=== PATIENT | male | born 1955 | race Caucasian/White ===

== ENCOUNTER → 2020-06-01 10:41 | Outpatient (BNVA) | payer MEDICARE, MEDICAID, SELFPAY | PROVIDERS: PCP Internal Medicine; Referring Provider Internal Medicine; Visit Provider Internal Medicine Pulmonary Disease | DX: J44.9 Chronic obstructive pulmonary disease, unspecified (principal); R91.8 Other nonspecific abnormal finding of lung field | CPT/HCPCS: 99212 ==

== ENCOUNTER → 2020-06-09 10:25 | Outpatient (BNVA) | payer MEDICARE, MEDICAID, SELFPAY | PROVIDERS: PCP Internal Medicine; Visit Provider Nurse Practitioner Family | DX: I48.0 Paroxysmal atrial fibrillation (principal); I10 Essential (primary) hypertension; G47.33 Obstructive sleep apnea (adult) (pediatric); J44.9 Chronic obstructive pulmonary disease, unspecified | CPT/HCPCS: 93005; 99212 ==

== ENCOUNTER → 2020-07-07 09:02 | Outpatient (REF) | payer MEDICARE, MEDICAID, SELFPAY | LOC: HO.SL 09:02 | PROVIDERS: Visit Provider Internal Medicine Pulmonary Disease | DX: G47.33 Obstructive sleep apnea (adult) (pediatric) (principal) | CPT/HCPCS: 95806 ==

== ENCOUNTER → 2020-07-14 08:07 | Outpatient (REF) | payer MEDICARE, MEDICAID, SELFPAY ==
--- NOTE | 2020-07-14 | NM_ITS ---
Myocardial perfusion study Indication: Paroxysmal atrial fibrillation with medical therapy to evaluate for myocardial ischemia Technique: The patient was brought in for a Lexiscan perfusion study on 07/14/2020. Patient performed low-level exercise and was injected 0.4 mg of Lexiscan intravenously. Within a minute of injection, 30 mCi of sestamibi was given intravenously. Images were obtained using the SPECT gamma camera interlaced with the gating device. Images were obtained in supine position. Resting perfusion study was performed on 07/15/2020. Patient was administered 30 mCi of sestamibi intravenously at rest. Images were then obtained in supine position. Images obtained with and without CT attenuation. Total DLP 67 mGy-cm. Images were processed with the software and compared side to side in short axis, horizontal long axis and vertical long axis views. Findings: The stress perfusion study showed non attenuated images show normal uptake of radiotracer in all segments of LV myocardium. Attenuation corrected images suboptimal due to subdiaphragmatic uptake.. The gated study shows normal LV systolic function with calculated LVEF of 60%. LV cavity is normal in size. The gated study shows normal systolic wall thickening and contraction of segments. Resting study shows non attenuated images show normal uptake of radiotracer in all segments of LV myocardium. Gating at rest reveals normal systolic wall motion with ejection fraction at 57%. The findings are consistent with normal myocardial perfusion. NM/NM bruno perf SPECT rest & str Impression: 1. Myocardial perfusion imaging study shows normal myocardial perfusion 2. Gated LVEF is 60% 3. Transient ischemic dilatation not present EKG is nondiagnostic for ischemia
--- NOTE | 2020-07-14 08:13 | CA_ITS ---
Acquisition Time: 2020-07-14 08:16:20 Total Exercise Time: 00:02:00 Test Indications: Abnormal ECG Medications: ALBUTEROL FLECAINIDE LISINOPRIL METOPROLOL OMEPRAZOLE OXYCODONE ANORRA/ELIPTA CLONAZAPAM Protocol: LEXISCAN Max HR: 121 BPM 77% of Pred: 156 BPM Max BP: 108/068 mmHG Max Work Load: 1.0 METS Pharm stress test using Lexiscan while sitting. Pt toleraed well, denies any anginal sx. EKG with A-fib. at baseline, non-diagnostic for ischemia. Nuclear images to follow. Normotensive response to test. Test reviewed with With Dr. Kay. Referred By: Tamara Rodriguez Overread By: Chris Herrera
--- NOTE | 2020-07-14 08:13 | ECG_ITS ---
Hook-up date: 2020-07-14 09:13:00 Duration: 29:04:00 Test Indications: PAF Medications: 120286 QRS complexes 4 Ventricular ectopics which represent <1 % of total QRS comp. * Supraventricular ectopics which represent % of total QRS comp. * Paced QRS complexs which represent % of total QRS comp. VENTRICULAR ECTOPY 4 Isolated 0 Bigeminal Cycles 0 Couplets 0 Runs 0 Beats in Runs * Beats LONGEST at * BPM at :: -- * Beats FASTEST at * BPM at :: -- SUPRAVENTRICULAR ECTOPY * Isolated * Couplets * Runs * Beats in Runs * Beats LONGEST at * BPM at :: -- * Beats FASTEST at * BPM at :: -- HEART RATES 65 MIN at 11:37:08 2020-07-14 91 AVG 148 MAX at 10:15:37 2020-07-14 LONGEST RR 1.2880 secs at 14:29:04 2020-07-14 S-T LEVELS Channel 1 - 128 mm at 09:13:00 2020-07-14 - 128 mm at 09:13:00 2020-07-14 Channel 2 - 128 mm at 09:13:00 2020-07-14 - 128 mm at 09:13:00 2020-07-14 Channel 3 - 128 mm at 02:83:21 -- - 128 mm at 02:83:21 Underlying rhythm is atrial flutter; Average ventriucular rate 91/min; range 65-148/min; About 18% of the time, ventricular rate >100/min; Patient did not report any symptoms in the diary Referred By: Tamara Rodriguez Overread By: JOSÉ LUIS KAMINSKI
== END ==
LOC: HO.CARD 08:07
PROVIDERS: Visit Provider Nurse Practitioner Family
DX: I48.0 Paroxysmal atrial fibrillation (principal)
CPT/HCPCS: 78452; 93017; 93225; 93226; A9500; J0280; J2785

== ENCOUNTER → 2020-07-28 11:04 | Outpatient (BNVA) | payer MEDICARE, MEDICAID, SELFPAY | PROVIDERS: PCP Internal Medicine; Visit Provider Internal Medicine Pulmonary Disease | DX: J44.9 Chronic obstructive pulmonary disease, unspecified (principal); R91.8 Other nonspecific abnormal finding of lung field | CPT/HCPCS: Q3014 ==

== ENCOUNTER → 2020-08-04 11:42 | Outpatient (BNVA) | payer MEDICARE, MEDICAID, SELFPAY | PROVIDERS: PCP Internal Medicine; Visit Provider Nurse Practitioner Family | DX: I48.0 Paroxysmal atrial fibrillation (principal); I10 Essential (primary) hypertension; J44.9 Chronic obstructive pulmonary disease, unspecified; I48.92 Unspecified atrial flutter | CPT/HCPCS: 99212 ==

== ENCOUNTER → 2020-08-25 10:20 | Outpatient (BNVA) | payer MEDICARE, MEDICAID, SELFPAY | PROVIDERS: PCP Internal Medicine; Visit Provider Internal Medicine Pulmonary Disease | DX: Z13.89 Encounter for screening for other disorder (principal) | CPT/HCPCS: 99212 ==

== ENCOUNTER 2020-08-26 07:07 | Day surgery (SDC) | payer MEDICARE, MEDICAID, SELFPAY ==
[2020-08-24 10:16] LABS: MANUAL DIFF FLAG NO
[2020-08-24 10:45] LABS: Basophils Absolute Auto 0.1 X10*3/uL (0.0-0.2); Basophils Percent Auto 0.6 % (0-2); Eosinophils Absolute Auto 0.1 X10*3/uL (0.0-0.4); Eosinophils Percent Auto 1.3 % (0-4); Hematocrit 43.2 % (42-52); Hemoglobin 14.5 g/dl (14.0-18.0); Imm Gran Abs Auto 0.04 X10*3/uL (0.00-0.03); Imm Gran Pct Auto 0.4 % (0.0-0.4); Lymphocytes Percent Auto 21.1 % (20-40); Mean Corpuscular HGB Conc 33.6 g/dl (31.0-36.0); Mean Corpuscular Hemoglobin 30.8 pg (27.0-33.0); Mean Corpuscular Volume 91.7 fL (80-98); Mean Platelet Volume 12.5 fL (9.4-12.4); Monocytes Absolute Auto 0.6 X10*3/uL (0.1-1.2); Monocytes Percent Auto 6.1 % (2-11); Neutrophils Absolute Auto 6.7 X10*3/uL (2.0-8.3); Neutrophils Percent Auto 70.5 % (45-73); Platelet Count 213 X10*3/uL (160-400); Red Blood Count 4.71 X10*6/uL (4.60-5.80); Red Cell Distribution Width 12.2 % (11.0-16.0); White Blood Count 9.5 X10*3/uL (4.8-10.8)
[2020-08-24 11:09] LABS: Alanine Aminotransferase 22 U/L (0-40); Albumin Level 4.5 g/dL (3.5-5.0); Alkaline Phosphatase 80 U/L (39-117); Anion Gap 13 (12-20); Aspartate Amino Transferase 23 U/L (5-37); Bilirubin Total 0.7 mg/dL (0.0-1.0); Blood Urea Nitrogen 11 mg/dL (9-16); Calcium 9.6 mg/dL (8.4-10.2); Carbon Dioxide 30 mmol/L (22-29); Chloride 100 mmol/L (96-108); Estimated Glomerular Filt Rate > 60; Glucose Random 114 mg/dL (60-115); Potassium 4.5 mmol/L (3.3-5.1); Sodium 138 mmol/L (135-145)
--- NOTE | 2020-08-25 08:23 | P.CONAN_ITS ---
Documented by User: Michelel Rivera 08/25/20 08:28 HPI - Anesthesia Eval Consult details Narrative: 65yo M for Cardioversion PMFSH Active Problems Active Problems: All Active Problems (Updated 08/04/20 @ 12:02 by Tamara Rodriguez NP-C) Atrial flutter (Acute) PAF (paroxysmal atrial fibrillation) (Acute) Hypertension (Acute) Pulmonary nodules (Acute) Severe chronic obstructive pulmonary disease (Acute) Chronic pain disorder (Acute) Past Medical History Medical History (Updated 08/25/20 @ 08:28 by Michelle Rivera) Atrial flutter Cardiomyopathy Chronic pain disorder Hypertension PAF (paroxysmal atrial fibrillation) Severe chronic obstructive pulmonary disease Family History Family History Father Respiratory distress Mother Myocardial infarction CAD (coronary artery disease) Sister Gastric cancer Surgical History Surgical History History of left shoulder replacement Social History Social History Alcohol intake: current Alcohol intake frequency: a few times a week Smoking Status: Current every day smoker Tobacco Type: Cigarette Cigarettes Per Day: 15 Smoked in Last 30 Days: Yes Use of substances other than those prescribed or required for medical reasons: No Advance Directives: No Advance Directives Information Provided: Yes Meds Allergies Allergy/AdvReac Type Severity Reaction Status Date / Time No Known Allergies Allergy Verified 08/25/20 10:21 Exam Exam Date and Time: August 25, 2020822 Pertinent Lab Results Pertinent Lab Results: Laboratory Tests 08/24/20 08/24/20 09:43 09:43 WBC 9.5 RBC 4.71 Hgb 14.5 Hct 43.2 MCV 91.7 MCH 30.8 MCHC 33.6 RDW 12.2 Plt Count 213 MPV 12.5 H Immature Gran % (Auto) 0.4 Neut % (Auto) 70.5 Lymph % (Auto) 21.1 [place] % (Auto) 6.1 Eos % (Auto) 1.3 Baso % (Auto) 0.6 Lymph # (Auto) 2.0 [place] # (Auto) 0.6 Eos # (Auto) 0.1 Baso # (Auto) 0.1 Abs Immat Gran (auto) 0.04 H Absolute Neuts (auto) 6.7 Absolute Nucleated RBC 0.000 Nucleated RBC % (auto) 0.0 Sodium 138 Potassium 4.5 Chloride 100 Carbon Dioxide 30 H Anion Gap 13 BUN 11 Creatinine 1.14 Estim Creat Clear Calc TNP Estimated GFR > 60 Random Glucose 114 Calcium 9.6 Magnesium 2.0 Total Bilirubin 0.7 AST 23 ALT 22 Alkaline Phosphatase 80 Total Protein 7.0 Albumin 4.5 Narrative Narrative: ECHO 05/16/2018 showed EF 60-65%, left atrium moderately dilated, mild MR Holter 07/14/2020 shows atrial flutter with average heart rate 91, heart rate range 65 to 148, 18% of the time heart rate greater than 100. Nuclear stress test 07/14/2020 shows normal myocardial perfusion imaging. Sleep study done on 07/07/2020 shows no obstructive sleep apnea or hypoxia, severe snoring present. Pulmonary function test on 01/29/2020 shows severe obstructive airway disorder, partly reversible with bronchodilator consistent with asthma/COPD. Assessment and Plan Assessment Anesthesia Assessment: Chart Reviewed Documented by User: Brittaney Clemente 08/26/20 08:32 [facility] Past Medical History Medical History (Updated 08/25/20 @ 08:28 by Michelle Rivera) Atrial flutter Cardiomyopathy Chronic pain disorder Hypertension PAF (paroxysmal atrial fibrillation) Severe chronic obstructive pulmonary disease Family History Family History Father Respiratory distress Mother Myocardial infarction CAD (coronary artery disease) Sister Gastric cancer Surgical History Surgical History History of left shoulder replacement Social History Social History Alcohol intake: current Alcohol intake frequency: a few times a week Smoking Status: Current every day smoker Tobacco Type: Cigarette Cigarettes Per Day: 15 Smoked in Last 30 Days: Yes Use of substances other than those prescribed or required for medical reasons: No Advance Directives: No Advance Directives Information Provided: Yes Meds Allergies Allergy/AdvReac Type Severity Reaction Status Date / Time No Known Allergies Allergy Verified 08/25/20 10:21 Exam Airway Mallampati Class: II TM Dist: >3cm Neck ROM: Full Denture: Upper and Lower Heart: RrR Lungs: CTA Bl Assessment and Plan Assessment Anesthesia Assessment: Anesthesia Plan Discussed and Chart Reviewed Final Anesthetic Review NPO: Yes ASA Class: III Final Preanesthetic Review: No Changes in Pt Med Stat and Consent Obtained/Reviewed Patient Risk: Intermediate Procedure Risk: Intermediate Anesthetic Plan Anesthetic Plan: MAC: Disposition: Standard PACU
--- NOTE | 2020-08-25 16:03 | MHC.SHP ---
Pre-Procedural Eval Section A The patient is an INPATIENT: No Changes since office visit: Yes Patient answered all questions; No Cold of Flu in the past 2 weeks, No New Medical Problems and No Changes in Medication The History & Physical has been completed within 30 days and I have reviewed it.: Yes Section B Chief Complaint: A-fib Allergies: Allergies Allergy/AdvReac Type Severity Reaction Status Date / Time No Known Allergies Allergy Verified 08/25/20 10:21 Plan I have reviewed the history and physical and performed a pertinent physical examination on my patient. No changes have occurred unless specified.
[2020-08-26 07:18] VITALS: BMI 27.8
[2020-08-26 07:27] VITALS: BP 113/74; PULSE 106; RESP 16; TEMP 36.7; O2SAT 97
[2020-08-26] MEDS: Lactated Ringers 1,000 ML 100 ML IVCONT (08:02)
--- NOTE | 2020-08-26 08:41 | ECG_ITS ---
Test Reason : S/P CARDIOVERSION Blood Pressure : / mmHG Vent. Rate : 069 BPM Atrial Rate : 069 BPM P-R Int : 206 ms QRS Dur : 104 ms QT Int : 444 ms P-R-T Axes : 085 094 053 degrees QTc Int : 475 ms Normal sinus rhythm Rightward axis Cannot rule out Inferior infarct (cited on or before 22-FEB-2017) Abnormal ECG When compared with ECG of 28-NOV-2018 12:05, Sinus rhythm has replaced Atrial fibrillation Referred By: Charli Perkins Electronically Signed By:JOSÉ LUIS KAMINSKI
[2020-08-26 08:42] VITALS: BP 98/63; PULSE 69; RESP 16; TEMP 36.4; O2SAT 96
--- NOTE | 2020-08-26 08:42 | HO.CARDIVERS ---
Cardioversion Procedure Note Cardioversion Date of Procedure: 08/26/2020 Ordering Provider: Tamara Rodriguez Performing Provider: Myself Indication for Procedure: Persistent atrial fibrillation, symptomatic Pre-Op Diagnosis: Persistent atrial fibrillation Post-Op Diagnosis: Sinus rhythm Performed with Transesophageal Echo: No History: See H&P for details Consent: Verbal and Written consent was obtained from the patient before starting and after confirming use of oral anticoagulation.. The patient was made aware of the risk of the procedure including benefits, 2nd opinion and alternatives. Procedure: After consent obtained, cardioversion pads were attached in AP configuration and the patient was sedated by the anesthesia team. Once adequate sedation achieved, patient was delivered 200 joules of biphasic synchronized energy in anteroposterior configuration. Complications: None Impression: Successful conversion to sinus rhythm. Recommendations: 1. EKG now 2. Continue flecainide for antiarrhythmic therapy along with Toprol 3. Continue Xarelto 4. Follow up in the office in 2-4 weeks after Holter monitor 5. EPS consultation for repeat ablation
[2020-08-26 08:47] VITALS: BP 107/62; PULSE 67; RESP 18; O2SAT 97
[2020-08-26 08:52] VITALS: BP 102/57; PULSE 68; RESP 16; O2SAT 98
[2020-08-26 08:57] VITALS: BP 110/64; PULSE 72; RESP 18; O2SAT 98
[2020-08-26 09:12] VITALS: PULSE 70; RESP 16; O2SAT 97
--- NOTE | 2020-08-26 10:36 | PC.NURSE ---
Patient drove his car here but has family picking him up for discharge. He said he was leaving his car here overnight. I contacted [facility] [facility] and they came to [facility] to speak with patient. Security is now aware that his vehicle may be here overnight.
== END 2020-08-26 10:15 | disposition home or self-care (01) ==
PROVIDERS: Nurse Practitioner Family; PCP Internal Medicine; Visit Provider Internal Medicine Cardiovascular Disease
PROC: 5A2204Z Restoration of Cardiac Rhythm, Single (ICD-10-PCS; principal; 2020-08-26 08:30)
DX: I48.19 Other persistent atrial fibrillation (principal); Z79.01 Long term (current) use of anticoagulants; I10 Essential (primary) hypertension; J44.9 Chronic obstructive pulmonary disease, unspecified; Z79.899 Other long term (current) drug therapy; F17.210 Nicotine dependence, cigarettes, uncomplicated
CPT/HCPCS: 36415; 80053; 83735; 85025; 92960; 93005

== ENCOUNTER → 2020-09-10 10:30 | Outpatient (REF) | payer MEDICARE, MEDICAID, SELFPAY ==
--- NOTE | 2020-09-10 10:34 | CA_ITS ---
Transthoracic Echocardiogram Patient (Last, First, Middle): Odell Singer F Gender: Male Date of : 1955 Age: 65 Procedure Date: 09/10/2020 Procedure Type: Transthoracic Echocardiogram Location: OP Height: 180.34 cm Weight: 87.09 kg BSA: 2.07 m2 Heart Rate: bpm BP: 130 / 75 mmHg General Repairer: MAURICE Referring MD: Tamara REZA Retail Buyer: Charli Perkins MD Symptoms: I48.92 - Unspecified atrial flutter Study Quality: Fair ECG Rhythm: Sinus Conclusions: - 1. Low normal LV systolic function with LVEF of 50-55% 2. Right ventricular appears to be dilated 3. Moderately enlarged left atrium 4. [id number] mitral regurgitation 5. Normal RV systolic pressure 6. No pericardial effusion Findings Left Ventricle Normal left ventricular cavity size. There is normal left ventricular wall thickness. The left ventricular systolic function is low normal. The visually estimated ejection fraction is between 50-55%. Spectral Doppler is indicative of an impaired relaxation filling pattern. Right Ventricle Moderately increased right ventricular cavity size. There is borderline right ventricular systolic function. Atria The left atrium is moderately dilated. There is no evidence of interatrial shunt. The right atrium is mildly dilated. Aortic Valve The aortic valve structure and function is likely normal. There is no aortic valve stenosis. There is no aortic valve regurgitation. Mitral Valve There is mild anterior and posterior mitral leaflet thickening. There is mild to moderate mitral valve regurgitation. There is no mitral valve stenosis. Pulmonic Valve The pulmonic valve was not well visualized. Tricuspid Valve Likely normal tricuspid valve structure and function. There is mild tricuspid valve regurgitation. The right ventricular systolic pressure is normal. The right ventricular systolic pressure is 35 mmHg. Normal right atrial pressure. There is no evidence of pulmonary hypertension. Great Vessels All visible segments of the aorta are normal in size. The pulmonary artery was not well visualized. Venous The inferior vena cava is normal in size and collapses greater than 50% with inspiration. Pericardium/Pleural There is no evidence of pericardial effusion. Prior Study Comparison Changes noted compared to prior study dated: 05/16/2018. LV systolic function appears to be reduced. RV appears to be enlarged Measurements 2D Linear Measurements IVSd: 0.80 0.6-0.9/0.6-1.0 cm LVIDd: 5.23 3.9-5.3/4.2-5.9 cm LVIDd Index: 2.53 2.4-3.2/2.2-3.1 cm/m2 LVIDs: 3.33 2.0-3.6 cm LVPWd: 0.84 0.7-1.1 cm Ao Root: 3.20 2.1-3.5 cm LA Diam: 4.40 2.7-3.8/3.0-4.0 cm LAIDs Index: 2.13 1.5-2.3 cm/m2 LV Mass: 187.99 67-162/88-224 g LV Mass Index: 90.82 43-95/49-115 g/m2 LVOT Diam: 2.10 3.0+(-)1.3 cm 2D Systolic Function EF 4C: 65.70 >55% EF 2C: 35.20 >55% EF BiP: 53.30 >55% Mitral Valve MV Pk E: 0.77 MV PK A: 0.39 MV Decel Time: 248.00 E/A: 2.00 E'Lateral: 9.38 E'Medial: 7.64 E/E' Med: 10.00 E/E' Lat: 8.20 PHT: 73.00 MVA PHT: 3.01 Decel [place]: 3.09 Aortic Valve AoV Pk More[place]: 1.03 AoV Pk Grad: 4.00 LVOT LVOT Pk [place]: 0.81 LVOT Mn More[place]: 0.53 LVOT VTI: 0.17 LVOT Pk Grad: 3.00 LVOT Mn Grad: 1.00 LVOT Diam: 2.10 LVOT Area: 3.46 Diastolic Function MV Pk E: 0.77 MV Pk A: 0.39 E/A: 2.00 E'Medial: 7.64 E/E' Med: 10.00 E' Laterial: 9.38 E/E' Lat: 8.20 Tricuspid Valve TR Pk [place]: 2.84 TR Pk Grad: 32.00 RA Press: 3.00 RVSP: 35.00 Great Vessels Aorta Ao Root-2D: 3.20 2.0-3.7 cm Ao Asc: 3.80 2.1-3.4 cm Updated in Other Vendor System with Status of Final Charli Perkins MD electronically signed on 09/11/2020 3:33:55 PM with status of Final
== END ==
LOC: HO.CARD 10:30
PROVIDERS: Visit Provider Nurse Practitioner Family
DX: I42.9 Cardiomyopathy, unspecified (principal); I48.0 Paroxysmal atrial fibrillation; I48.92 Unspecified atrial flutter
CPT/HCPCS: 93306

== ENCOUNTER → 2020-09-11 10:38 | Outpatient (REF) | payer MEDICARE, MEDICAID, SELFPAY ==
--- NOTE | 2020-09-11 11:29 | ECG_ITS ---
Hook-up date: 2020-09-11 10:48:00 Duration: 47:59:00 Test Indications: PAF Medications: 14287 QRS complexes 2 Ventricular ectopics which represent <1 % of total QRS comp. 19 Supraventricular ectopics which represent <1 % of total QRS comp. * Paced QRS complexs which represent % of total QRS comp. VENTRICULAR ECTOPY 2 Isolated 0 Bigeminal Cycles 0 Couplets 0 Runs 0 Beats in Runs * Beats LONGEST at * BPM at :: -- * Beats FASTEST at * BPM at :: -- SUPRAVENTRICULAR ECTOPY 10 Isolated 1 Couplets 2 Runs 7 Beats in Runs 4 Beats LONGEST at 90 BPM at 16:51:45 2020-09-11 3 Beats FASTEST at 104 BPM at 14:22:52 2020-09-11 HEART RATES 54 MIN at 12:08:48 2020-09-11 70 AVG 102 MAX at 03:09:44 2020-09-12 LONGEST RR 1.3920 secs at 11:08:47 2020-09-11 S-T LEVELS Channel 1 - 128 mm at 10:48:00 2020-09-11 - 128 mm at 10:48:00 2020-09-11 Channel 2 - 128 mm at 10:48:00 2020-09-11 - 128 mm at 10:48:00 2020-09-11 Channel 3 - 128 mm at 03:00:71 -- - 128 mm at 03:00:71 Basic rhythm Normal sinus rhythm No long pause or profound bradycardia Rare Premature atrial complexes No sustained Atrial fibrillation No diary submitted Referred By: Charli Perkins Overread By: CHARLI PERKINS MD
== END ==
LOC: HO.CARD 10:38
PROVIDERS: PCP Internal Medicine; Visit Provider Internal Medicine Cardiovascular Disease
DX: I48.0 Paroxysmal atrial fibrillation (principal); I48.92 Unspecified atrial flutter
CPT/HCPCS: 93226

== ENCOUNTER → 2020-09-22 10:03 | Outpatient (BNVA) | payer MEDICARE, MEDICAID, SELFPAY | PROVIDERS: PCP Internal Medicine; Visit Provider Internal Medicine Cardiovascular Disease | DX: I48.0 Paroxysmal atrial fibrillation (principal); I10 Essential (primary) hypertension; F17.200 Nicotine dependence, unspecified, uncomplicated; Z79.899 Other long term (current) drug therapy; Z71.6 Tobacco abuse counseling; Z86.79 Personal history of other diseases of the circulatory system | CPT/HCPCS: 93005; 99212 ==

== ENCOUNTER → 2022-02-24 11:10 | Outpatient (BNVA) | payer OTHER, MEDICAID, SELFPAY | PROVIDERS: PCP Internal Medicine; Visit Provider Internal Medicine Pulmonary Disease | DX: J44.9 Chronic obstructive pulmonary disease, unspecified (principal); R91.8 Other nonspecific abnormal finding of lung field; F17.210 Nicotine dependence, cigarettes, uncomplicated; Z79.899 Other long term (current) drug therapy | CPT/HCPCS: 99212 ==

== ENCOUNTER 2022-07-21 12:57 | Outpatient (REF) | payer OTHER, MEDICAID, SELFPAY ==
--- NOTE | ~2022-07-21 | CT_ITS ---
EXAMINATION: CT CHEST WITHOUT CONTRAST CLINICAL INFORMATION: Abnormal lung findings. COMPARISON: CT chest screening 08/28/2019. TECHNIQUE: Multidetector volumetric CT imaging of the chest was done. Axial MIP volume rendering provided. Sagittal and coronal reformatted images were obtained. This CT examination was performed using dose optimization techniques as appropriate, variously including the following: *Automated exposure control *Adjustment of mA and/or kV according to patient size (this includes techniques or standardized protocols for targeted exams where dose is matched to indication/reason for exam; i.e. extremities or head) *Use of iterative reconstruction technique DLP: 178 mGy-cm FINDINGS: TREATMENT COUNSELOR: Well-expanded lungs. LUNGS: Mild centrilobular emphysema with small multiple pulmonary nodules visualized. Ill-defined 4 mm nodule and ill-defined adjacent densities right upper lobe axial image 14/4, 15/4; 2 mm and less scattered nodules in right upper lobe 19/4, 21/4; 5 mm nodule right upper lobe adjacent to mediastinum axial image 183/6; several 2 mm nodules in right upper lobe axial image 185/6 and several additional nodules. MEDIASTINUM: The thyroid lobes are symmetric and normal. Central trachea and the bronchi are normal. No abnormal mediastinal or hilar lymph nodes seen. There is no pericardial effusion. CORONARY ARTERY CALCIFICATION: [id number] coronary artery calcifications are present. PLEURA: There is no pleural effusion. No pleural mass or thickening. AXILLA: There are small bilateral axillary lymph nodes the largest measuring 1.3 cm right axilla and 1.2 cm left axilla. The chest wall is unremarkable. UPPER ABDOMEN: Visualized liver, spleen, pancreas and bilateral adrenal glands are unremarkable. There is bilateral perinephric stranding. OSSEOUS STRUCTURES: Bone windows reveal no lytic or sclerotic process. CT/CT chest wo IV con IMPRESSION: Mild emphysema with several small 4 mm or less pulmonary nodules predominantly in the right upper lobe. No endobronchial nodule or bronchiectasis seen. They are similar to previous exam 08/28/2019. Small shotty bilateral axillary lymph nodes. Fleischner guidelines were followed.
== END 2022-07-21 12:58 | disposition home or self-care (01) ==
LOC: HO.CT 12:57
PROVIDERS: PCP Internal Medicine; Visit Provider Internal Medicine Pulmonary Disease
DX: R91.8 Other nonspecific abnormal finding of lung field (principal)
CPT/HCPCS: 71250

== ENCOUNTER → 2022-09-23 10:31 | Outpatient (BNVA) | payer OTHER, MEDICAID, SELFPAY | PROVIDERS: PCP Internal Medicine; Visit Provider Internal Medicine Pulmonary Disease | DX: J44.9 Chronic obstructive pulmonary disease, unspecified (principal); I48.0 Paroxysmal atrial fibrillation; I50.9 Heart failure, unspecified; R91.8 Other nonspecific abnormal finding of lung field; F17.210 Nicotine dependence, cigarettes, uncomplicated | CPT/HCPCS: 99212 ==

== ENCOUNTER 2022-11-25 10:35 | Outpatient (REF) | payer OTHER, MEDICAID, SELFPAY ==
--- NOTE | ~2022-11-25 | US_ITS ---
EXAMINATION: US RETROPERITONEAL LIMITED (RENAL ONLY) CLINICAL INFORMATION: Hematuria. COMPARISON: None available. TECHNIQUE: Abdomen ultrasound from 01/03/2014. FINDINGS: RIGHT KIDNEY: 10.9 x 6 x 5.1 cm (SAG x AP x TRV). The kidney is normal in size, contour, and echogenicity. Renal cortical thickness is normal. No calculi or focal parenchymal lesions. No hydronephrosis. LEFT KIDNEY: 11.7 x 5.3 x 4.7 cm (SAG x AP x TRV). The kidney is normal in size and parenchymal echogenicity. There is an area of chronic cortical thinning of the lateral upper pole. Otherwise, renal cortical thickness is normal. No calculi or focal parenchymal lesions. No hydronephrosis. US/US renal BI IMPRESSION: No specific source of hematuria is identified. No renal mass, stones or hydronephrosis..
== END 2022-11-25 10:36 | disposition home or self-care (01) ==
LOC: HO.HMGCX 10:35
PROVIDERS: PCP Internal Medicine; Visit Provider Internal Medicine
DX: R31.9 Hematuria, unspecified (principal)
CPT/HCPCS: 76775

== ENCOUNTER 2022-12-17 13:00 | Emergency (ER) | payer OTHER, MEDICAID, SELFPAY ==
--- NOTE | ~2022-12-17 | CT_ITS ---
EXAMINATION: CT ABDOMEN AND PELVIS WITHOUT CONTRAST CLINICAL INFORMATION: Hematuria with question of kidney stones COMPARISON: Renal ultrasound 11/25/2022 TECHNIQUE: Multidetector volumetric imaging was performed from the superior aspect of the liver through the pubic symphysis. Sagittal and coronal reformatted images were obtained on the technologist's workstation. This CT examination was performed using dose optimization techniques as appropriate, variously including the following: *Automated exposure control *Adjustment of mA and/or kV according to patient size (this includes techniques or standardized protocols for targeted exams where dose is matched to indication/reason for exam; i.e. extremities or head) *Use of iterative reconstruction technique DLP: 462 mGy-cm FINDINGS: LUNG BASES: Some minimal peribronchial thickening is seen. A calcified granuloma present in the left lower lobe. A 4 mm groundglass nodule present in the right lower lobe (4:59). No pleural effusions. LIVER, GALLBLADDER, AND BILIARY TREE: The liver is normal in size, shape, and attenuation. No focal hepatic lesion or biliary ductal dilatation is present. The gallbladder is unremarkable with no evidence of radiopaque gallstones, gallbladder wall thickening, or obvious pericholecystic inflammatory changes. PANCREAS: Unremarkable. SPLEEN: Unremarkable. ADRENAL GLANDS: Unremarkable. KIDNEYS AND URETERS: The kidneys are normal in size, shape, and attenuation. No hydronephrosis, hydroureter, or calculi seen. There is bilateral nonspecific perinephric stranding. BLADDER: Unremarkable. GASTROINTESTINAL TRACT: The small and large bowel are unremarkable. The appendix is not seen but there is no evidence of appendicitis. ABDOMINAL WALL: No significant hernia is appreciated. LYMPH NODES: No retroperitoneal lymphadenopathy. VASCULAR: Unremarkable. PELVIC VISCERA: The prostate and seminal vesicles are unremarkable. OSSEOUS STRUCTURES: Unremarkable. CT/CT abdomen pelvis wo IV con IMPRESSION: 1. A cause for the patient's hematuria has not been found. No renal calculi are seen. 2. Incidental note made of a 4 mm groundglass nodule in the right lower lobe and minimal peribronchial thickening. 2017 Fleischner Society Recommendations for Lung Nodule(s): Follow up based on size (average of long- and short-axis diameters). Use most suspicious nodule for followup. Single GG lung nodule < 6 mm: No routine followup imaging is recommended. These guidelines do not apply to patients younger than 35 years, immunocompromised patients, and patients with cancer. F/u in patients with significant comorbidities as clinically warranted. For lung cancer screening, adhere to Lung-RADS guidelines. Reference: Radiology. 2017 [place]; 284(1):228-983
--- NOTE | 2022-12-17 13:31 | ED_ITS ---
HPI - Male Genitourinary General Chief complaint: Urogenital-Male Stated complaint: blood in urine Time Seen by Provider: 12/17/22 15:56 Source: patient and RN notes reviewed Mode of arrival: ambulatory Limitations: no limitations History of Present Illness HPI Narrative: This is a 33-sckk-kax-male, with a history of a. fib on xarelto and HTN, presenting to the emergency department with complaints of intermittent hematuria x 5-6 weeks. Patient also reports that he has had dysuria and suprapubic tenderness post void for the last 3 days. He states no penile discharge. Patient was seen by his primary care provider on November 18, 2022 for hematuria where he had a urinalysis, urine cytology and renal ultrasound. Patient is not sexually active and has no concerns for sexually transmitted infections. He denies any fevers, chills, nausea, vomiting, or diarrhea. No other complaints or concerns at this time. MD Complaint: dysuria Onset (ago): week(s) Duration: constant Severity: moderate Quality: aching Relieving factors: none Exacerbating factors: none Associated symptoms: Reports blood in urine and dysuria Related Data Sexually active: No Previous Rx's Medication Instructions Recorded loratadine 10 mg tablet 10 mg PO DAILY PRN allergy 09/14/21 symptoms #90 tabs metoprolol tartrate 100 mg tablet 100 mg PO BID 90 days #270 tabs 12/21/21 lisinopril 5 mg tablet 5 mg PO DAILY #90 tabs 06/08/22 clotrimazole-betamethasone 1 1 appl topical BID 2 weeks #45 07/05/22 %-0.05 % topical cream grams clonazepam 0.5 mg tablet 0.5 mg PO TID #90 tabs 07/06/22 flecainide 150 mg tablet 150 mg PO Q12H 90 days #180 tabs 07/19/22 omeprazole 20 mg capsule,delayed 20 mg PO DAILY #90 caps 07/19/22 release Anoro Ellipta 62.5 mcg-25 1 ea PO DAILY 30 days #60 ea 09/12/22 mcg/actuation powder for inhalation (umeclidinium-vilanterol) albuterol sulfate 90 mcg/actuation 2 puff PO Q4-6H PRN for muscle 09/27/22 aerosol inhaler spasm #1 ea oxycodone 5 mg tablet 5 mg PO Q6H PRN pain 28 days #112 11/25/22 tabs rivaroxaban 20 mg tablet (Xarelto) 20 mg PO QPM #90 tabs 11/25/22 cephalexin 500 mg capsule 500 mg PO QID 7 days #28 caps 12/17/22 Allergies Allergy/AdvReac Type Severity Reaction Status Date / Time No Known Allergies Allergy Verified 11/18/22 14:48 Review of Systems Review of Systems: Constitutional: No Weight loss, No Fever, No Chills, No Night Sweats, No Fatigue , No Malaise ENT/Mouth: No Hearing loss, No Ear Pain, No Nasal Congestion, No Sinus Pain, No Hoarseness, No sore throat, No Rhinorrhea, No Swallowing Difficulty Eyes: No Eye Pain, No Swelling, No Redness, No Foreign Body, No Discharge, No Vision Changes Cardiovascular: No Chest Pain, No SOB, No Dyspnea on Exertion, No Orthopnea, No Edema, No Palpitations Respiratory: No Cough, No Sputum, No Wheezing, No Smoke Exposure, No Dyspnea Gastrointestinal: No Nausea, No Vomiting, No Diarrhea, No Constipation, No Abdominal pain, No Hematochezia, No Melena Genitourinary: No irregular bleeding, + Dysuria, No Urinary Frequency, + Hematuria, No Urinary Incontinence/retention, No Urgency, No Flank Pain, No Urinary Flow Changes, No Hesitancy Musculoskeletal: No joint pain, No Myalgias, No Joint Swelling Skin: No Skin Lesions, No rash Neuro: No Weakness, No Numbness, No Paresthesias, No Loss of Consciousness, No Dizziness, No Headache Psych: No Anxiety/Panic, No Depression, No SI/HI/AH/VH, No Social Issues, Heme/Lymph: No Bruising, No Bleeding,No Lymphadenopathy Endocrine: No Polyuria, No Polydipsia, No Temperature Intolerance Yes all other systems are reviewed and are negative Constitutional: Constitutional: Reports as per HPI [facility] Past Medical History Medical History (Updated 12/17/22 @ 16:52 by LIZY Moscoso) Atrial flutter Cardiomyopathy Chronic pain disorder History of congestive heart failure Hypertension PAF (paroxysmal atrial fibrillation) Severe chronic obstructive pulmonary disease Shoulder pain Surgical History History of left shoulder replacement Family History Family History Father Respiratory distress Mother Myocardial infarction CAD (coronary artery disease) Sister Gastric cancer Social History Social History Housing: Apartment Alcohol intake: current Alcohol intake frequency: a few times a week Patient Tobacco Use Status: Current everyday Tobacco user Tobacco use type: Cigarette Cigarettes Per Day: 3 Smoked in Last 30 Days: Yes e-Cigarette/Vaping Use: Never Used Second Hand Smoke Exposure: No Use of substances other than those prescribed or required for medical reasons: No Advance Directives: No Advance Directives Information Provided: Yes service: No Current occupational status: disabled Current occupational exposures/hazards: No Cognitive needs: No Hearing needs: No Vision needs: No Physical Exam Vital Signs: Vital Signs: Last Vital Signs Temp 98.0 F 12/17/22 17:39 Pulse 62 12/17/22 17:39 Resp 20 12/17/22 17:39 BP 132/62 12/17/22 17:39 Pulse Ox 98 12/17/22 17:39 O2 Del Method Room Air 12/17/22 17:39 BMI result Body Mass Index 24.4 Const: General: cooperative, comfortable and no acute distress Orientati on/consciousness: patient oriented x3 Limitations: no limitations HEENT: Head: Yes normal to inspection, Yes normocephalic and Yes atraumatic Ears: hearing grossly normal bilaterally General nose exam: Normal external nose present Face and sinus: Yes normal facial exam Mouth: Normal oral and palatal mucosa present, oropharynx normal and moist mucous membranes Throat: Yes posterior oropharynx normal Eyes: General: appearance normal, both eyes and all related structures Eyelids: Yes eyelids normal Conjunctivae: conjunctivae normal Sclerae: sclerae normal Pupils: Equal, round and reactive pupils present EOM: EOMs intact bilaterally Neck: Neck: Yes normal visual inspection, Yes full ROM and Yes no lymphadenopathy Lymphatic: no lymphadenopathy noted Chest: Chest palpation & inspection: normal inspection of the chest Resp: Effort & Inspection: normal respiratory effort and able to speak in complete sentences Auscultation: clear to auscultation bilaterally, no crackles, no rales, no rhonchi and no wheezes Cardio: Other: Irregularly irregular GI: Inspection: Yes normal to inspection Palpation (GI): Soft to palpation, nontender and no guarding : General: No CVA tenderness Back/Spine/Pelvis: Back: No CVA tenderness Skin: General skin exam: no rashes or lesions noted Trauma: no lacerations or abrasions Wounds: no wounds Neuro: General: patient oriented x3 and moves all extremities Cranial nerves: Yes Equal, round and reactive pupils present Extrem: General: Yes normal to inspection Right upper extremity: normal to inspection Left upper extremity: normal to inspection Right lower extremity: normal to inspection Left lower extremity: normal to inspection Course Course Course Narrative: This is an RME: Additional HPI, ROS, PE not included below will be deferred to primary provider. Patient is a 67-year-old male presents to the emergency department for evaluation of hematuria, he is on rivaroxaban for atrial fibrillation. Bleeding has been present intermittently for 5-6 weeks. He states that 2 weeks ago he had a renal ultrasound due to the hematuria, which was unremarkable. Today he is experiencing dysuria, suprapubic pain. Denies fevers, chills, nausea, vomiting. Plan: Urinalysis, labs Reevaluation(s) Reevaluation #1: CT abdomen and pelvis revealing no renal calculi. No hydronephrosis, hydroureter. Incidental 4 mm ground-glass nodule in the right lower lobe seen on imaging. I discussed these results with patient. Patient states that he is aware of this and is followed by his primary care physician regarding this. Urine appears to be slightly infected, will treat with 7 day course of Keflex. Educated the importance of continuing the entire course even if feeling better. Patient has follow-up with Urology, missed appointment as his truck wrote down. Advised to call on Monday for follow-up. Patient understands and agrees with plan. Vital signs stable, patient is nontoxic appearing. Stable for discharge. Time: 17:55 Medications Administered Discontinued Medications Generic Name Dose Route Start Last Admin Trade Name Freq PRN Reason Stop Dose Admin Cephalexin HCl 500 mg 12/17/22 18:00 12/17/22 18:14 Cephalexin 500 Mg Capsule PO 12/17/22 18:01 500 mg ONCE ONE Administration Medical Decision Making Medical Decision Making [facility] Narrative: This is a 89-dhps-lts-male, hx of a. fib on xarelto and HTN, presenting to the emergency department with complaints of intermittent hematuria x 5-6 weeks, and dysuria/suprapubic tenderness x 3 days. On arrival VSS. Abdomen is soft, NT, ND. No CVA tenderness. Pt previously seen by PCP had renal US with no source of hematuria. UA performed today revealing large blood, small leuks. Given ongoing symptoms, will obtain CT abdomen and pelvis for further evaluation. Able to tolerate PO without difficulty. Differential Diagnosis Differential Diagnoses: The differential diagnosis associated with the presentation includes UTI, pylonephritis, nephrolithiasis, hydronephrosis, renal obstuction, mass Admission/Observation Consideration of admission/observation: Escalation of care including admission/observation considered Given hx of hematuria on AC, will check H&H and further labs. Lab Data MDM Lab Attestation statement: I reviewed the patient's lab results. No leukocytosis, H&H 11 point/35.6 down trending from last visit on 2020. Urinalysis revealing large blood, small leuks. 12/17/22 14:04 12/17/22 14:04 Labs: Lab Results 12/17/22 12/17/22 12/17/22 Range/Units 14:04 14:04 14:04 WBC 7.4 (4.8-10.8) X10*3/uL RBC 3.74 L (4.60-5.80) X10*6/uL Hgb 11.9 L (14.0-18.0) g/dl Hct 35.6 L (42.0-52.0) % MCV 95.2 (80.0-98.0) fL MCH 31.8 (27.0-33.0) pg MCHC 33.4 (31.0-36.0) g/dl RDW 12.3 (11.0-16.0) % Plt Count 188 (160-400) X10*3/uL MPV 11.6 (9.4-12.4) fL Immature Gran % (Auto) 0.3 (0.0-0.4) % Neut % (Auto) 70.4 (45-73) % Lymph % (Auto) 21.1 (20-40) % [place] % (Auto) 7.0 (2-11) % Eos % (Auto) 0.7 (0-4) % Baso % (Auto) 0.5 (0-2) % Lymph # (Auto) 1.6 (1.2-4.9) X10*3/uL [place] # (Auto) 0.5 (0.1-1.2) X10*3/uL Eos # (Auto) 0.1 (0.0-0.4) X10*3/uL Baso # (Auto) 0.0 (0.0-0.2) X10*3/uL Abs Immat Gran (auto) 0.02 (0.00-0.03) X10*3/uL Absolute Neuts (auto) 5.2 (2.0-8.3) x10*3/uL Absolute Nucleated RBC 0.000 (0.0-0.012) X10*3/uL Nucleated RBC % (auto) 0.0 (0.0-0.2) /100WBC PT 14.9 H (10.0-13.1) SEC INR 1.3 H (0.9-1.1) Sodium 138 (135-145) mmol/L Potassium 4.2 (3.3-5.1) mmol/L Chloride 102 (96-108) mmol/L Carbon Dioxide 23 (22-29) mmol/L Anion Gap 17 (12-20) BUN 15 (9-16) mg/dL Creatinine 1.40 (0.5-1.4) mg/dL Estim Creat Clear Calc 55.2 Estimated GFR 51 Random Glucose 106 (60-115) mg/dL Calcium 9.7 (8.4-10.2) mg/dL Total Bilirubin 1.3 H (0.0-1.0) mg/dL AST 25 (5-37) U/L ALT 15 (0-40) U/L Alkaline Phosphatase 84 (39-117) U/L Total Protein 6.5 (6.5-8.0) g/dL Albumin 3.9 (3.5-5.0) g/dL Urine Color Urine Appearance Urine pH (5.0-9.0) Ur Specific [place] (1.005-1.025) Urine Protein (Neg-Trace) mg/dL Urine Glucose (UA) (Negative) mg/dL Urine Ketones (Negative) mg/dL Urine Blood (Negative) Urine Nitrite (Negative) Ur Leukocyte Esterase (Negative) Urine RBC (0-2) /HPF Urine WBC (0-5) /HPF Ur Squamous Epith Cells (0-2) /HPF Urine Bacteria (None Seen) Hyaline Casts (0-2) /LPF // Range/Units 14:04 WBC (4.8-10.8) X10*3/uL RBC (4.60-5.80) X10*6/uL Hgb (14.0-18.0) g/dl Hct (42.0-52.0) % MCV (80.0-98.0) fL MCH (27.0-33.0) pg MCHC (31.0-36.0) g/dl RDW (11.0-16.0) % Plt Count (160-400) X10*3/uL MPV (9.4-12.4) fL Immature Gran % (Auto) (0.0-0.4) % Neut % (Auto) (45-73) % Lymph % (Auto) (20-40) % [place] % (Auto) (2-11) % Eos % (Auto) (0-4) % Baso % (Auto) (0-2) % Lymph # (Auto) (1.2-4.9) X10*3/uL [place] # (Auto) (0.1-1.2) X10*3/uL Eos # (Auto) (0.0-0.4) X10*3/uL Baso # (Auto) (0.0-0.2) X10*3/uL Abs Immat Gran (auto) (0.00-0.03) X10*3/uL Absolute Neuts (auto) (2.0-8.3) x10*3/uL Absolute Nucleated RBC (0.0-0.012) X10*3/uL Nucleated RBC % (auto) (0.0-0.2) /100WBC PT (10.0-13.1) SEC INR (0.9-1.1) Sodium (135-145) mmol/L Potassium (3.3-5.1) mmol/L Chloride (96-108) mmol/L Carbon Dioxide (22-29) mmol/L Anion Gap (12-20) BUN (9-16) mg/dL Creatinine (0.5-1.4) mg/dL Estim Creat Clear Calc Estimated GFR Random Glucose (60-115) mg/dL Calcium (8.4-10.2) mg/dL Total Bilirubin (0.0-1.0) mg/dL AST (5-37) U/L ALT (0-40) U/L Alkaline Phosphatase (39-117) U/L Total Protein (6.5-8.0) g/dL Albumin (3.5-5.0) g/dL Urine Color Dark Yellow Urine Appearance Clear Urine pH 5.5 (5.0-9.0) Ur Specific [place] 1.025 (1.005-1.025) Urine Protein Trace (Neg-Trace) mg/dL Urine Glucose (UA) Negative (Negative) mg/dL Urine Ketones Trace (Negative) mg/dL Urine Blood Large (3+) H (Negative) Urine Nitrite Negative (Negative) Ur Leukocyte Esterase Small (1+) H (Negative) Urine RBC >20 H (0-2) /HPF Urine WBC 0-5 (0-5) /HPF Ur Squamous Epith Cells 0-2 (0-2) /HPF Urine Bacteria None Seen (None Seen) Hyaline Casts 3-5 (0-2) /LPF Radiology Impression Discussion of test interpretation with radiology: I have reviewed the radiologist's reading. Radiologist Impression: EXAMINATION: CT ABDOMEN AND PELVIS WITHOUT CONTRAST? CLINICAL INFORMATION: Hematuria with question of kidney stones? COMPARISON: Renal ultrasound 11/25/2022 TECHNIQUE: Multidetector volumetric imaging was performed from the superior aspect of the liver through the pubic symphysis. Sagittal and coronal reformatted images were obtained on the technologist's workstation.? This CT examination was performed using dose optimization techniques as appropriate, variously including the following: *Automated exposure control *Adjustment of mA and/or kV according to patient size (this includes techniques or standardized protocols for targeted exams where dose is matched to indication/reason for exam; i.e. extremities or head) *Use of iterative reconstruction technique DLP: 462 mGy-cm FINDINGS: LUNG BASES: Some minimal peribronchial thickening is seen. A calcified granuloma present in the left lower lobe. A 4 mm groundglass nodule present in the right lower lobe (4:59). No pleural effusions.? LIVER, GALLBLADDER, AND BILIARY TREE: The liver is normal in size, shape, and attenuation. No focal hepatic lesion or biliary ductal dilatation is present. The gallbladder is unremarkable with no evidence of radiopaque gallstones, gallbladder wall thickening, or obvious pericholecystic inflammatory changes.? PANCREAS: Unremarkable.? SPLEEN: Unremarkable.? ADRENAL GLANDS: Unremarkable.? KIDNEYS AND URETERS: The kidneys are normal in size, shape, and attenuation. No hydronephrosis, hydroureter, or calculi seen. There is bilateral nonspecific perinephric stranding. ? BLADDER: Unremarkable.? GASTROINTESTINAL TRACT: The small and large bowel are unremarkable. The appendix is not seen but there is no evidence of appendicitis.? ABDOMINAL WALL: No significant hernia is appreciated.? LYMPH NODES: No retroperitoneal lymphadenopathy. VASCULAR: Unremarkable. PELVIC VISCERA: The prostate and seminal vesicles are unremarkable.? OSSEOUS STRUCTURES: Unremarkable.? CT/CT abdomen pelvis wo IV con IMPRESSION: 1.? A cause for the patient's hematuria has not been found. No renal calculi are seen. 2.? Incidental note made of a 4 mm groundglass nodule in the right lower lobe and minimal peribronchial thickening. ? ? 2017 Fleischner Society Recommendations for Lung Nodule(s): Follow up based on size (average of long- and short-axis diameters). Use most suspicious nodule for followup. ? Single GG lung nodule < 6 mm:? No routine followup imaging is recommended. ? ? These guidelines do not apply to patients younger than 35 years, immunocompromised patients, and patients with cancer. F/u in patients with significant comorbidities as clinically warranted. For lung cancer screening, adhere to Lung-RADS guidelines.? ? Reference:? Radiology. 2017 Dec; 284(1):228-243 ? ? Dictated By: Jermaine Smiley MD External Record Review External record reviewed: Inpatient record, Office record, Outpatient record, Prior outpatient labs, Prior outpatient radiology, Primary care record and Outside ED record Review of primary care visit on 11/18 with similar complaints. Chronic Conditions Patient?s care impacted by: Other (Atrial fibrillation on Eliquis) Discharge Plan Discharge Clinical Impression: Urinary tract infection, Hematuria Patient Disposition: Home, Self-Care Instructions: Urinary Tract Infection in Men (DC) Additional Instructions: Your CT revealed no kidney stones. Your CT revealed a 4mm groundglass nodule in the right lower lobe. Please follow up with your primary care physician. Please take prescribed antibiotic as directed. Finish the entire course even if your symptoms improve. Drink plenty of fluids get plenty of rest. Follow-up with Urology. If any new or worsening symptoms occur including but not limited to worsening hematuria, dizziness, nausea, vomiting, fevers, please return for re- evaluation. Prescriptions: New cephalexin 500 mg capsule 500 mg PO QID 7 Days Qty: 28 0RF No Action loratadine 10 mg tablet 10 mg PO DAILY PRN (Reason: allergy symptoms) Qty: 90 8RF metoprolol tartrate 100 mg tablet 100 mg PO BID 90 Days Qty: 270 8RF Rx Instructions: 1 tab in the AM, 2 tabs in the PM lisinopril 5 mg tablet 5 mg PO DAILY Qty: 90 7RF clotrimazole-betamethasone 1-0.05 % cream 1 appl topical BID 14 Days Qty: 45 0RF clonazepam 0.5 mg tablet 0.5 mg PO TID Qty: 90 5RF flecainide 150 mg tablet 150 mg PO Q12H 90 Days Qty: 180 1RF omeprazole 20 mg capsule,delayed release(DR/EC) 20 mg PO DAILY Qty: 90 8RF Anoro Ellipta 62.5-25 mcg/actuation blister with device 1 ea PO DAILY 30 Days Qty: 60 6RF albuterol sulfate 90 mcg/actuation HFA aerosol inhaler 2 puff PO Q4-6H PRN (Reason: for muscle spasm) Qty: 1 0RF oxycodone 5 mg tablet 5 mg PO Q6H PRN (Reason: pain) 28 Days Qty: 112 0RF Xarelto 20 mg tablet 20 mg PO QPM Qty: 90 8RF Rx Instructions: must administer with evening meal Referrals: [facility] [Provider Group]
[2022-12-17 13:38] VITALS: BP 111/63; PULSE 68; RESP 16; TEMP 35.9; O2SAT 97; BMI 24.4
[2022-12-17 14:09] LABS: MANUAL DIFF FLAG NO
[2022-12-17 14:12] LABS: Appearance Urine Clear; Color Urine Dark Yellow; Glucose Urine UA Negative (Negative); Leukocyte Esterase Urine Small (1+) (Negative); Nitrite Urine Negative (Negative); PH 5.5 (5.0-9.0); Specific Gravity - Urine 1.025 (1.005-1.025); UMIC TRIGGER UACC YES; Urine Blood Large (3+) (Negative); Urine Ketones Trace mg/dL (Negative); Urine Protein Trace mg/dL (Neg-Trace)
[2022-12-17 14:18] LABS: Basophils Percent Auto 0.5 % (0-2); Eosinophils Absolute Auto 0.1 X10*3/uL (0.0-0.4); Eosinophils Percent Auto 0.7 % (0-4); Hematocrit 35.6 % (42.0-52.0); Hemoglobin 11.9 g/dl (14.0-18.0); Imm Gran Abs Auto 0.02 X10*3/uL (0.00-0.03); Imm Gran Pct Auto 0.3 % (0.0-0.4); Lymphocytes Absolute Auto 1.6 X10*3/uL (1.2-4.9); Lymphocytes Percent Auto 21.1 % (20-40); Mean Corpuscular HGB Conc 33.4 g/dl (31.0-36.0); Mean Corpuscular Hemoglobin 31.8 pg (27.0-33.0); Mean Corpuscular Volume 95.2 fL (80.0-98.0); Mean Platelet Volume 11.6 fL (9.4-12.4); Monocytes Absolute Auto 0.5 X10*3/uL (0.1-1.2); Neutrophils Absolute Auto 5.2 x10*3/uL (2.0-8.3); Neutrophils Percent Auto 70.4 % (45-73); Platelet Count 188 X10*3/uL (160-400); Red Blood Count 3.74 X10*6/uL (4.60-5.80); Red Cell Distribution Width 12.3 % (11.0-16.0); White Blood Count 7.4 X10*3/uL (4.8-10.8)
[2022-12-17 14:24] LABS: INTERNATIONAL NORM RATIO 1.3 (0.9-1.1); Prothrombin Time 14.9 SEC (10.0-13.1)
[2022-12-17 14:26] LABS: Alanine Aminotransferase 15 U/L (0-40); Albumin Level 3.9 g/dL (3.5-5.0); Alkaline Phosphatase 84 U/L (39-117); Anion Gap 17 (12-20); Aspartate Amino Transferase 25 U/L (5-37); Bacteria Urine None Seen (None Seen); Bilirubin Total 1.3 mg/dL (0.0-1.0); Blood Urea Nitrogen 15 mg/dL (9-16); Calcium 9.7 mg/dL (8.4-10.2); Carbon Dioxide 23 mmol/L (22-29); Chloride 102 mmol/L (96-108); Creatinine Clr Calc Pharmacy 55.2; Estimated Glomerular Filt Rate 51; Glucose Random 106 mg/dL (60-115); Potassium 4.2 mmol/L (3.3-5.1); RBC Urine >20 /HPF (0-2); Sodium 138 mmol/L (135-145); Squamous Epithelial Cell Urine 0-2 /HPF (0-2); Total Protein 6.5 g/dL (6.5-8.0); UACC Culture Trigger YES; WBC Urine 0-5 /HPF (0-5)
[2022-12-17 15:58] VITALS: BP 138/68; PULSE 61; RESP 18; TEMP 36.6; O2SAT 98
[2022-12-17 17:39] VITALS: BP 132/62; PULSE 62; RESP 20; TEMP 36.7; O2SAT 98
[2022-12-17] MEDS: cephALEXin 500 MG CAPSULE PO (18:14)
== END 2022-12-17 18:16 | disposition home or self-care (01) ==
PROVIDERS: Nurse Practitioner Family; Emergency Provider Internal Medicine; PCP Internal Medicine
DX: N39.0 Urinary tract infection, site not specified (principal); R31.9 Hematuria, unspecified; R91.1 Solitary pulmonary nodule; I10 Essential (primary) hypertension; I48.91 Unspecified atrial fibrillation; F17.210 Nicotine dependence, cigarettes, uncomplicated; Z79.01 Long term (current) use of anticoagulants; Z79.899 Other long term (current) drug therapy
CPT/HCPCS: 36415; 74176; 80053; 81001; 85025; 85610; 87086; 99284

== ENCOUNTER 2023-01-18 11:42 | Outpatient (AMB) | payer OTHER, MEDICAID, SELFPAY ==
--- NOTE | 2023-01-18 11:45 | A.OFFPC_ITS ---
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 by: Self / Same As Patient Allergies No Known Allergies Allergy (Verified 01/18/23 11:45) Medication List - Last Reconciled 01/18/23 by Vahid Farris MD albuterol sulfate 90 mcg/actuation 2 puffs PO Q4-6H PRN Anoro Ellipta 62.5-25 mcg/actuation (umeclidinium-vilanterol) 1 ea PO DAILY 30 days NS clonazepam 0.5 mg PO TID clotrimazole-betamethasone 1-0.05 % 1 appl topical BID 2 weeks flecainide 150 mg PO Q12H 90 days lisinopril 5 mg PO DAILY loratadine 10 mg PO DAILY PRN metoprolol tartrate 100 mg PO BID 90 days omeprazole 20 mg PO DAILY oxycodone 5 mg PO Q6H PRN 28 days rivaroxaban (Xarelto) 20 mg PO QPM Tobacco use date assessed: 09/27/22 Fall risk assessment: No Falls in past year Last assessed Fall Risk: 01/18/23 Dental Screening Dental Screen Date: 01/18/23 Did you have a dental visit in the last 12 months?: No Did you have a dental problem in the last 6 months where you did not have access to dental care?: No Was dental information given to patient?: Patient declined HPI Med Review HPI Details chronic pain on pain management; doing well [facility] Medical History Atrial flutter Cardiomyopathy Chronic pain disorder History of congestive heart failure Hypertension PAF (paroxysmal atrial fibrillation) Severe chronic obstructive pulmonary disease Shoulder pain Surgical History History of left shoulder replacement Family History Father Respiratory distress Mother Myocardial infarction CAD (coronary artery disease) Sister Gastric cancer Social History Housing: Apartment Alcohol intake: current Alcohol intake frequency: a few times a week Patient Tobacco Use Status: Current everyday Tobacco user Tobacco use type: Cigarette Cigarettes Per Day: 3 e-Cigarette/Vaping Use: Never Used Second Hand Smoke Exposure: No service: No Current occupational status: disabled Current occupational exposures/hazards: No Cognitive needs: No Hearing needs: No Vision needs: No Questionnaire PHQ-9 Over the last 2 weeks, how often have you been bothered by any of the following problems? Depression Screening Interpretation: Positive Source: Developed by Drs. Jonathon Tidwell, Ab Hartmann and colleagues, with an educational srinivasa from [employer]. Thrive Questionnaire Date Thrive assessed: 09/27/22 Currently or been in a relationship where the following occur: no concerns reported SHIRLEY-7 AMB Questionnaire SHIRLEY-7 Date SHIRLEY - 7 assessed: 09/27/22 Source: Developed by Drs. Jonathon Tidwell, Leanne Carney, Ab Lagunas and colleagues, with an educational srinivasa from [employer]. Review of Systems Const Denies chills, Denies headache(s) and Denies weight loss ENT Denies headache(s) Card Denies chest pain, Denies syncope, Denies irregular heart rhythm and Denies dyspnea Resp Denies chest congestion, Denies cough and Denies dyspnea GI Denies abdominal pain, Denies change in stool character, Denies nausea and Denies vomiting Musc Denies deformity and Denies joint swelling Neuro Denies syncope and Denies headache(s) Physical exam (Primary Care) Vital Signs: Last Vital Signs Pulse 62 01/18/23 11:46 BP 130/70 01/18/23 11:46 Pulse Ox 98 01/18/23 11:46 BMI result Body Mass Index 23.6 Tobacco/Smoking Status: Tobacco use Status Tobacco use date assessed 09/27/22 01/18/23 11:50 Patient Tobacco Use Status Current everyday Tobacco 01/18/23 11:50 Tobacco use type Cigarette 01/18/23 11:50 e-Cigarette/Vaping Use Never Used 01/18/23 11:50 Are you ready to quit: No Number of minutes spent counselin CPT code: 80527 - 4-10 Minutes Depression Screening Interpretation: Positive Thrive Assessment: Date of Thrive Assessment Date Thrive assessed 09/27/22 01/18/23 11:50 Currently or been in a relationship where the following occur: no concerns reported Const General: cooperative, comfortable and no acute distress Resp Effort & Inspection: normal respiratory effort Auscultation: clear to auscultation bilaterally and tactile fremitus present tactile fremitus present: tactile fremitus present Cardio Jugular venous distension: no JVD Rate: regular rate Rhythm: regular rhythm GI Inspection: Yes normal to inspection Assessment and Plan Assessment & Plan (1) Chronic pain disorder: Code(s): G89.4 - Chronic pain syndrome Plan: stable; same rx Medications: Refilled oxycodone 5 mg PO Q6H PRN 112 tabs 0RF pain 28 days metoprolol tartrate 1 tab in the AM, 2 tabs in the PM 100 mg PO BID 270 tabs 8RF 90 days Coding Level of Care Code Est Pt Level 3 (12571) Diagnoses Chronic pain disorder G89.4 Additional Codes Vital Signs *Quality* - CPT code: 01751 - 4-10 Minutes ([id number])
[2023-01-18 11:46] VITALS: BP 130/70; PULSE 62; O2SAT 98; BMI 23.6
== END 2023-01-18 11:58 | disposition home or self-care (01) ==
PROVIDERS: PCP Internal Medicine; Visit Provider Internal Medicine
DX: G89.4 Chronic pain syndrome (principal)
CPT/HCPCS: 99213

== ENCOUNTER 2023-02-17 11:39 | Outpatient (AMB) | payer OTHER, MEDICAID, SELFPAY ==
--- NOTE | 2023-02-17 11:43 | A.OFFPC_ITS ---
Vital Signs 02/17/23 11:44 Height 5 ft 11 in Weight 171 lb 1 oz BMI 23.9 BP 112/62 Blood Pressure Location Lt brachial Position Sitting Pulse 67 Pulse Source Pulse Oximeter Pulse Oximetry (%) 97 Oxygen Delivery Method Room Air Intake Visit Reasons: med review Intake Note: Patient is here to follow up on med management. 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 Accompanied by: Self / Same As Patient Allergies No Known Allergies Allergy (Verified 02/17/23 11:44) Tobacco use date assessed: 02/17/23 Fall risk assessment: No Falls in past year Last assessed Fall Risk: 02/17/23 HPI med review HPI Details chronic back pain on rx; stableon rx; compliant [facility] Medical History Atrial flutter Cardiomyopathy Chronic pain disorder History of congestive heart failure Hypertension PAF (paroxysmal atrial fibrillation) Severe chronic obstructive pulmonary disease Shoulder pain Surgical History History of left shoulder replacement Family History Father Respiratory distress Mother Myocardial infarction CAD (coronary artery disease) Sister Gastric cancer Social History Housing: Apartment Alcohol intake: current Alcohol intake frequency: a few times a week Patient Tobacco Use Status: Current someday Tobacco user Tobacco use type: Cigarette Cigarettes Per Day: 3 e-Cigarette/Vaping Use: Never Used Second Hand Smoke Exposure: No service: No Current occupational status: disabled Current occupational exposures/hazards: No Cognitive needs: No Hearing needs: No Vision needs: No Questionnaire PHQ-9 Over the last 2 weeks, how often have you been bothered by any of the following problems? Depression Screening Interpretation: Positive Source: Developed by Drs. Jonathon Tidwell, Ab Hartmann and colleagues, with an educational srinivasa from [employer]. Thrive Questionnaire Date Thrive assessed: 09/27/22 Currently or been in a relationship where the following occur: no concerns reported SHIRLEY-7 AMB Questionnaire SHIRLEY-7 Date SHIRLEY - 7 assessed: 09/27/22 Source: Developed by Drs. Jonathon LLeanne Smith, Ab Lagunas and colleagues, with an educational srinivasa from [employer]. Review of Systems Const Denies chills, Denies headache(s) and Denies weight loss ENT Denies headache(s) Card Denies chest pain, Denies syncope, Denies irregular heart rhythm and Denies dyspnea Resp Denies chest congestion, Denies cough and Denies dyspnea GI Denies abdominal pain, Denies change in stool character, Denies nausea and Denies vomiting Musc Denies deformity and Denies joint swelling Neuro Denies syncope and Denies headache(s) Physical exam (Primary Care) Vital Signs: Last Vital Signs Pulse 67 02/17/23 11:44 BP 112/62 02/17/23 11:44 Pulse Ox 97 02/17/23 11:44 Oxygen Delivery Method Room Air 02/17/23 11:44 BMI result Body Mass Index 23.9 Tobacco/Smoking Status: Tobacco use Status Tobacco use date assessed 02/17/23 02/17/23 11:48 Patient Tobacco Use Status Current someday Tobacco 02/17/23 11:48 Tobacco use type Cigarette 02/17/23 11:48 e-Cigarette/Vaping Use Never Used 02/17/23 11:48 Are you ready to quit: No Number of minutes spent counselin CPT code: 09028 - 4-10 Minutes Depression Screening Interpretation: Positive Thrive Assessment: Date of Thrive Assessment Date Thrive assessed 09/27/22 02/17/23 11:48 Currently or been in a relationship where the following occur: no concerns reported Const General: cooperative, comfortable and no acute distress Resp Effort & Inspection: normal respiratory effort Auscultation: clear to auscultation bilaterally and tactile fremitus present tactile fremitus present: tactile fremitus present Cardio Jugular venous distension: no JVD Rate: regular rate Rhythm: regular rhythm GI Inspection: Yes normal to inspection Assessment and Plan Assessment & Plan (1) Chronic pain disorder: Code(s): G89.4 - Chronic pain syndrome Plan: stable; same rx Orders: Referrals Urology Referral R31.9 - Hematuria, unspecified Medications: Refilled oxycodone 5 mg PO Q6H PRN 112 tabs 0RF pain 28 days Coding Level of Care Code Est Pt Level 3 (54040) Diagnoses Chronic pain disorder G89.4 Additional Codes Vital Signs *Quality* - CPT code: 68037 - 4-10 Minutes ([id number])
[2023-02-17 11:44] VITALS: BP 112/62; PULSE 67; O2SAT 97; BMI 23.9
== END 2023-02-17 12:46 | disposition home or self-care (01) ==
PROVIDERS: PCP Internal Medicine; Visit Provider Internal Medicine
DX: G89.4 Chronic pain syndrome (principal)
CPT/HCPCS: 99213

== ENCOUNTER 2023-03-15 10:59 | Outpatient (REF) | payer OTHER, MEDICAID, SELFPAY | END 2023-03-15 11:00 | disposition home or self-care (01) | LOC: HO.LAB 10:59 | PROVIDERS: PCP Internal Medicine; Visit Provider Urology | DX: C67.9 Malignant neoplasm of bladder, unspecified (principal); R31.0 Gross hematuria; N41.9 Inflammatory disease of prostate, unspecified | CPT/HCPCS: 81003; 88121 ==

== ENCOUNTER 2023-03-15 10:59 | Outpatient (AMB) | payer OTHER, MEDICAID, SELFPAY ==
--- NOTE | 2023-03-15 11:01 | MHC.OFFVIS ---
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 Intake Note: NEW Patient presents today to established treatment for Hematuria: Meds- None Allergies to Antibiotic- No Known Allergies Blood Thinner- None Scale Agent Required: No Accompanied by: Self / Same As Patient Allergies No Known Allergies Allergy (Verified 04/21/23 08:44) Medication List - Last Reconciled 03/15/23 by Greyson Hall MD albuterol sulfate 90 mcg/actuation 2 puffs PO Q4-6H PRN amoxicillin-pot clavulanate 875-125 mg 1 tab PO BID Anoro Ellipta 62.5-25 mcg/actuation (umeclidinium-vilanterol) 1 ea PO DAILY 30 days NS clonazepam 0.5 mg PO TID clotrimazole-betamethasone 1-0.05 % 1 appl topical BID 2 weeks flecainide 150 mg PO Q12H 90 days lisinopril 5 mg PO DAILY loratadine 10 mg PO DAILY PRN metoprolol tartrate 100 mg PO BID 90 days omeprazole 20 mg PO DAILY oxycodone 5 mg PO Q6H PRN 28 days rivaroxaban (Xarelto) 20 mg PO QPM tamsulosin (Flomax) 0.4 mg PO BEDTIME HPI HPI Comments History of Present Illness Details Odell is a 67-year-old male who presents today to the office to establish as a new patient for an evaluation of hematuria.? 03/15/2023? He presents today for an evaluation of hematuria.?PMH -Cardiomiopathy, Htn, atrial flutter, he is on blood thinners, He has been taking blood thinner for about 7-8 years. He mentions having hematuria and reports nocturia x 7. He was seen in ED on 12/17/2022 for hematuria. He was treated with antibiotics during that time. Patient was advised to follow-up with urology during that time.? I reviewed the CT abdomen/pelvis results from 12/17/2022 revealed no renal calculi are seen. Incidental note made of a 4 mm groundglass nodule in the right lower lobe and minimal peribronchial thickening. I reviewed the renal US results from 11/25/2022 revealed no specific source of hematuria is identified. No renal mass, stones or hydronephrosis. I reviewed the urine culture results from 12/17/2022 which came back < 10,000 cfu/ml. Evaluation today?UA? leukocytes: 15 Emma; blood: negative; protein 1 +. Examination: prostate is tender to palpation and firm. Plan: I am going to start him on antibiotics and alpha deepika. Consent form was obtained for Cystoscopy. Will schedule out-patient Cystoscopy for further evaluation of the bladder. Prescribed augmentin 875 mg bid for 10 days and flomax 0.4 mg. PSA screening was ordered. Follow-up in 1 month. [facility] Medical History Shoulder pain History of congestive heart failure Atrial flutter Cardiomyopathy PAF (paroxysmal atrial fibrillation) Hypertension Severe chronic obstructive pulmonary disease Chronic pain disorder Surgical History History of left shoulder replacement Family History Father Respiratory distress Mother Myocardial infarction CAD (coronary artery disease) Sister Gastric cancer Social History Housing: Apartment Alcohol intake: current Alcohol intake frequency: a few times a week Patient Tobacco Use Status: Current someday Tobacco user Tobacco use type: Cigarette Cigarettes Per Day: 3 e-Cigarette/Vaping Use: Never Used Second Hand Smoke Exposure: No service: No Current occupational status: disabled Current occupational exposures/hazards: No Cognitive needs: No Hearing needs: No Vision needs: No Review of Systems Const All systems reviewed & are unremarkable except as noted in HPI and below Reports no additional complaints Eyes Reports no additional complaints ENT Reports no additional complaints Card Denies dyspnea Resp Denies cough and Denies dyspnea GI Reports no additional complaints Musc Reports no additional complaints Skin/Breast Denies rash and Denies unusual bruising Neuro Reports no additional complaints Psych Reports no additional complaints Endo Reports no additional complaints Davy/Lymph Reports no additional complaints Aller/Immun Reports no additional complaints Physical Exam Const General: healthy appearing, no acute distress and well developed Orientation/consciousness: patient oriented x3 HEENT Head: Yes normocephalic and Yes atraumatic Eyes Conjunctivae: conjunctivae normal Neck Neck: Yes normal visual inspection Chest Chest palpation & inspection: normal inspection of the chest Resp Effort & Inspection: normal respiratory effort Cardio Rate: regular rate GI Inspection: Yes normal to inspection Palpation (GI): Soft to palpation Other: Prostate Exam: prostate is tender to palpation and firm. Skin General skin exam: no rashes or lesions noted Neuro General: patient oriented x3 Extrem General: No pedal edema Psych Appearance: grossly normal Affect: normal affect Results AMB Urinalysis, Automated UA Leukoctes 15 Emma/uL Last Edit by ALEKSANDR Long on 03/15/23 11:25 UA Nitrite Negative Last Edit by Annelise Adams Elisa on 03/15/23 11:25 UA Urobilinogen 0.2 mg/dL Last Edit by Annelise Adams [facility] on 03/15/23 11:25 UA Protein 30 mg/dL Last Edit by Annelise Adams [facility] on 03/15/23 11:25 1+ Annelise Adams 03/15/23 11:25 UA pH 6.0 Last Edit by Annelise Adams [facility] on 03/15/23 11:25 UA Blood 200 Angel/uL Last Edit by Annelise Adams [facility] on 03/15/23 11:25 3+ Annelise Adams 03/15/23 11:25 UA Specific [place] 1.015 Last Edit by Annelise Adams Elisa on 03/15/23 11:25 UA Ketone Negative Last Edit by Annelise Adams [facility] on 03/15/23 11:25 UA Bilirubin 0 mg/dL Last Edit by Annelise Adams [facility] on 03/15/23 11:25 UA Glucose 0 mg/dL Last Edit by Annelise Adams [facility] on 03/15/23 11:25 Results Reviewed Results Reviewed: Laboratory Last Values Urine pH (Auto) 6.0 03/15/23 11:12 Specific [place] (Auto) 1.015 03/15/23 11:12 Urine Protein (Auto) 30 mg/dL 03/15/23 11:12 Glucose (UA)(Auto) 0 mg/dL 03/15/23 11:12 Urine Ketones (Auto) Negative 03/15/23 11:12 Urine Blood (Auto) 200 Angel/uL 03/15/23 11:12 Urine Nitrite (Auto) Negative 03/15/23 11:12 Urine Bilirubin (Auto) 0 mg/dL 03/15/23 11:12 Urine Urobilinogen (Auto) 0.2 mg/dL 03/15/23 11:12 Leukocyte Esterase (Auto) 15 Emma/uL 03/15/23 11:12 Ordered:? Urine Culture? Procedure?Result?Verified?Site ? Urine Culture? Final?12/18/22-1251 ? Report Result?< 10,000 cfu/ml Date of Service: 11/25/22 EXAMINATION:? US RETROPERITONEAL LIMITED (RENAL ONLY CLINICAL INFORMATION: Hematuria. COMPARISON:? None available. FINDINGS: RIGHT KIDNEY: 10.9 x 6 x 5.1 cm (SAG x AP x TRV). The kidney is normal in size, contour, and echogenicity. Renal cortical thickness is normal. No calculi or focal parenchymal lesions. No hydronephrosis. LEFT KIDNEY: 11.7 x 5.3 x 4.7 cm (SAG x AP x TRV). The kidney is normal in size and parenchymal echogenicity. There is an area of chronic cortical thinning of the lateral upper pole. Otherwise, renal cortical thickness is normal. No calculi or focal parenchymal lesions. No hydronephrosis. IMPRESSION:? No specific source of hematuria is identified. No renal mass, stones or hydronephrosis Date of Service: 12/17/22 EXAMINATION: CT ABDOMEN AND PELVIS WITHOUT CONTRAST?? CLINICAL INFORMATION: Hematuria with question of kidney stones?? COMPARISON: Renal ultrasound 11/25/2022 FINDINGS: LUNG BASES: Some minimal peribronchial thickening is seen. A calcified granuloma present in the left lower lobe. A 4 mm groundglass nodule present in the right lower lobe (4:59). No pleural effusions.? LIVER, GALLBLADDER, AND BILIARY TREE: The liver is normal in size, shape, and attenuation. No focal hepatic lesion or biliary ductal dilatation is present. The gallbladder is unremarkable with no evidence of radiopaque gallstones, gallbladder wall thickening, or obvious pericholecystic inflammatory changes.?? PANCREAS: Unremarkable.?? SPLEEN: Unremarkable.?? ADRENAL GLANDS: Unremarkable.?? KIDNEYS AND URETERS: The kidneys are normal in size, shape, and attenuation. No hydronephrosis, hydroureter, or calculi seen. There is bilateral nonspecific perinephric stranding.? ? BLADDER: Unremarkable.?? GASTROINTESTINAL TRACT: The small and large bowel are unremarkable. The appendix is not seen but there is no evidence of appendicitis.?? ABDOMINAL WALL: No significant hernia is appreciated.?? LYMPH NODES: No retroperitoneal lymphadenopathy VASCULAR: Unremarkable. PELVIC VISCERA: The prostate and seminal vesicles are unremarkable.? OSSEOUS STRUCTURES: Unremarkable.?? IMPRESSION: 1.? A cause for the patient's hematuria has not been found. No renal calculi are seen. 2.? Incidental note made of a 4 mm groundglass nodule in the right lower lobe and minimal peribronchial thickening Assessment & Plan Assessment & Plan (1) Gross hematuria: Code(s): R31.0 - Gross hematuria (2) Prostatitis: Code(s): N41.9 - Inflammatory disease of prostate, unspecified Plan I am going to start him on antibiotics and alpha deepika.? Consent form was obtained for Cystoscopy. Will schedule out-patient Cystoscopy for further evaluation of the bladder. Prescribed augmentin 875 mg bid for 10 days and flomax 0.4 mg. PSA screening was ordered. Follow-up in 1 month. Orders: Orders AMB Urinalysis Automated 03/15/23 Z13.9 - Encounter for screening, unspecified FISH Bladder Cancer 03/15/23 C67.9 - Malignant neoplasm of bladder, unspecified Medications: New amoxicillin-pot clavulanate 875-125 mg 1 tab PO BID 20 tabs 0RF tamsulosin (Flomax) 0.4 mg PO BEDTIME 90 caps 0RF Patient Instructions: The patient had an opportunity to ask questions regarding treatment plan. All questions were answered. Imaging, Laboratory studies and physical exam results were discussed and reviewed in detail. No major barriers to understanding were identified. The patient expressed understanding and agreement with the above treatment plan.? ? ? The patient is aware they should contact our office by phone for worsening of their current condition or the appearance of new symptoms. Compliance is encouraged with any medications and followup testing that is ordered.? ? ? It is a privilege to be allowed the opportunity to participate in the urologic care of your patient. If you have any questions or concerns regarding treatment for the above conditions please do not hesitate to contact me. The office telephone contact is [phone].? ? ? This note is constructed in part using voice recognition software. While every effort has been made to ensure accuracy manager clinical services errors may have been included.? ? ? Yours sincerely,? ? ? Greyson Hall MD? Coding Level of Care Code New Pt Level 4 (79905) Diagnoses Gross hematuria R31.0 Prostatitis N41.9
== END 2023-03-15 12:28 | disposition home or self-care (01) ==
LOC: HO.HUSH 10:59
PROVIDERS: PCP Internal Medicine; Visit Provider Urology
DX: R31.0 Gross hematuria (principal); N41.9 Inflammatory disease of prostate, unspecified
CPT/HCPCS: 99204; 99214

== ENCOUNTER 2023-04-21 08:40 | Outpatient (AMB) | payer OTHER, MEDICAID, SELFPAY ==
[2023-04-21 08:43] VITALS: BP 118/76; PULSE 90; O2SAT 99; BMI 22.9
--- NOTE | 2023-04-21 08:43 | MHC.PC.OV ---
Vital Signs 04/21/23 08:43 Height 5 ft 11 in Weight 164 lb BMI 22.9 BP 118/76 Blood Pressure Location Lt brachial Position Sitting Pulse 90 Pulse Source Pulse Oximeter Pulse Oximetry (%) 99 Oxygen Delivery Method Room Air Intake Visit Reasons: Medications F/U Allergies No Known Allergies Allergy (Verified 04/21/23 08:44) Medication List - Last Reconciled 04/21/23 by Vahid Farris MD albuterol sulfate 90 mcg/actuation 2 puffs PO Q4-6H PRN amoxicillin-pot clavulanate 875-125 mg 1 tab PO BID Anoro Ellipta 62.5-25 mcg/actuation (umeclidinium-vilanterol) 1 ea PO DAILY 30 days NS clonazepam 0.5 mg PO TID clotrimazole-betamethasone 1-0.05 % 1 appl topical BID 2 weeks flecainide 150 mg PO Q12H 90 days lisinopril 5 mg PO DAILY loratadine 10 mg PO DAILY PRN metoprolol tartrate 100 mg PO BID 90 days omeprazole 20 mg PO DAILY oxycodone 5 mg PO Q6H PRN 28 days oxycodone 5 mg PO Q6H PRN 28 days rivaroxaban (Xarelto) 20 mg PO QPM Tobacco use date assessed: 02/17/23 Fall risk assessment: 1 Fall in past year Last assessed Fall Risk: 04/21/23 Dental Screening Dental Screen Date: 04/21/23 Did you have a dental visit in the last 12 months?: No Did you have a dental problem in the last 6 months where you did not have access to dental care?: No Was dental information given to patient?: Patient has dentist HPI Medications F/U HPI Details chronic pain on rx; stable and compliant [facility] Medical History Shoulder pain History of congestive heart failure Atrial flutter Cardiomyopathy PAF (paroxysmal atrial fibrillation) Hypertension Severe chronic obstructive pulmonary disease Chronic pain disorder Surgical History History of left shoulder replacement Family History Father Respiratory distress Mother Myocardial infarction CAD (coronary artery disease) Sister Gastric cancer Social History Housing: Apartment Alcohol intake: current Alcohol intake frequency: a few times a week Patient Tobacco Use Status: Current someday Tobacco user Tobacco use type: Cigarette Cigarettes Per Day: 3 e-Cigarette/Vaping Use: Never Used Second Hand Smoke Exposure: No service: No Current occupational status: disabled Current occupational exposures/hazards: No Cognitive needs: No Hearing needs: No Vision needs: No Questionnaire PHQ-9 Over the last 2 weeks, how often have you been bothered by any of the following problems? Depression Screening Interpretation: Positive Depression Screening Done: Yes Source: Developed by Drs. Jonathon Tidwell, Leanne Carney, Ab Lagunas and colleagues, with an educational srinivasa from [employer]. Thrive Questionnaire Date Thrive assessed: 09/27/22 AUDIT C Alcohol Use Questionnaire (AUDIT-C) 1. How often do you have a drink containing alcohol?: 2-4 times a month 2. How many drinks containing alcohol do you have on a typical day when you are drinking?: 1 or 2 3. How often do you have six or more drinks on one occasion?: Never Total Score: 2 Score Reviewed/Action Taken: Yes SHIRLEY-7 AMB Questionnaire SHIRLEY-7 Date SHIRLEY - 7 assessed: 09/27/22 Source: Developed by Drs. Jonathon Tidwell, Leanne Carney, Ab Lagunas and colleagues, with an educational srinivasa from [employer]. Review of Systems Const Denies chills, Denies headache(s) and Denies weight loss ENT Denies headache(s) Card Denies chest pain, Denies syncope, Denies irregular heart rhythm and Denies dyspnea Resp Denies chest congestion, Denies cough and Denies dyspnea GI Denies abdominal pain, Denies change in stool character, Denies nausea and Denies vomiting Musc Denies deformity and Denies joint swelling Neuro Denies syncope and Denies headache(s) Physical exam (Primary Care) Vital Signs: Last Vital Signs Pulse 90 04/21/23 08:43 BP 118/76 04/21/23 08:43 Pulse Ox 99 04/21/23 08:43 Oxygen Delivery Method Room Air 04/21/23 08:43 BMI result Body Mass Index 22.9 Tobacco/Smoking Status: Tobacco use Status Tobacco use date assessed 02/17/23 04/21/23 08:50 Patient Tobacco Use Status Current someday Tobacco 04/21/23 08:50 Tobacco use type Cigarette 04/21/23 08:50 e-Cigarette/Vaping Use Never Used 04/21/23 08:50 Depression Screening Interpretation: Positive Thrive Assessment: Date of Thrive Assessment Date Thrive assessed 09/27/22 04/21/23 08:50 Const General: cooperative, comfortable, no acute distress and alert Neck Neck: Yes no lymphadenopathy Thyroid: Thyroid normal Resp Effort & Inspection: normal respiratory effort Auscultation: clear to auscultation bilaterally Percussion: percussion normal Cardio Jugular venous distension: no JVD Palpation: normal PMI Rate: regular rate Rhythm: regular rhythm Heart sounds: S1 normal heart sound present and S2 normal heart sound present GI Inspection: Yes normal to inspection Palpation (GI): No hepatosplenomegaly present Skin General skin exam: no rashes or lesions noted Extrem General: Yes no clubbing, cyanosis or edema Assessment and Plan Assessment & Plan (1) Chronic pain disorder: Code(s): G89.4 - Chronic pain syndrome Plan: stable; same rx Medications: Refilled oxycodone 5 mg PO Q6H PRN 112 tabs 0RF pain 28 days flecainide 150 mg PO Q12H 180 tabs 1RF 90 days oxycodone 5 mg PO Q6H PRN 112 tabs 0RF pain 28 days Coding Level of Care Code Est Pt Level 3 (21045) Diagnoses Chronic pain disorder G89.4
== END 2023-04-21 09:16 | disposition home or self-care (01) ==
PROVIDERS: PCP Internal Medicine; Visit Provider Internal Medicine
DX: G89.4 Chronic pain syndrome (principal)
CPT/HCPCS: 99213

== ENCOUNTER 2023-05-23 14:10 | Outpatient (AMB) | payer OTHER, MEDICAID, SELFPAY ==
[2023-05-23 14:15] VITALS: BP 124/82; PULSE 100; O2SAT 99; BMI 22.6
--- NOTE | 2023-05-23 14:15 | MHC.PC.OV ---
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 Accompanied by: Self / Same As Patient Allergies No Known Allergies Allergy (Verified 05/23/23 14:16) Medication List - Last Reconciled 05/24/23 by Vahid Farris MD albuterol sulfate 90 mcg/actuation 2 puffs PO Q4-6H PRN amoxicillin-pot clavulanate 875-125 mg 1 tab PO BID Anoro Ellipta 62.5-25 mcg/actuation (umeclidinium-vilanterol) 1 ea PO DAILY 30 days NS cephalexin 250 mg PO Q6H clonazepam 0.5 mg PO TID clotrimazole-betamethasone 1-0.05 % 1 appl topical BID 2 weeks flecainide 150 mg PO Q12H 90 days lisinopril 5 mg PO DAILY loratadine 10 mg PO DAILY PRN metoprolol tartrate 100 mg PO BID 90 days omeprazole 20 mg PO DAILY oxycodone 5 mg PO Q6H PRN 28 days oxycodone 5 mg PO Q6H PRN 28 days rivaroxaban (Xarelto) 20 mg PO QPM Tobacco use date assessed: 02/17/23 Fall risk assessment: No Falls in past year Last assessed Fall Risk: 05/23/23 Dental Screening Dental Screen Date: 05/23/23 Did you have a dental visit in the last 12 months?: Yes Did you have a dental problem in the last 6 months where you did not have access to dental care?: No Was dental information given to patient?: Patient has dentist HPI discuss boil on neck HPI Details abscess on upper back which needs I+D PFSH Medical History Shoulder pain History of congestive heart failure Atrial flutter Cardiomyopathy PAF (paroxysmal atrial fibrillation) Hypertension Severe chronic obstructive pulmonary disease Chronic pain disorder Surgical History History of left shoulder replacement Family History Father Respiratory distress Mother Myocardial infarction CAD (coronary artery disease) Sister Gastric cancer Social History Housing: Apartment Alcohol intake: current Alcohol intake frequency: a few times a week Patient Tobacco Use Status: Current someday Tobacco user Tobacco use type: Cigarette Cigarettes Per Day: 3 e-Cigarette/Vaping Use: Never Used Second Hand Smoke Exposure: No service: No Current occupational status: disabled Current occupational exposures/hazards: No Cognitive needs: No Hearing needs: No Vision needs: No Questionnaire Thrive Questionnaire Date Thrive assessed: 09/27/22 SHIRLEY-7 AMB Questionnaire SHIRLEY-7 Date SHIRLEY - 7 assessed: 09/27/22 Source: Developed by Drs. Jonathon Tidwell, Leanne Carney, Ab Lagunas and colleagues, with an educational srinivasa from [employer]. Review of Systems Const Denies chills, Denies headache(s) and Denies weight loss ENT Denies headache(s) Card Denies chest pain, Denies syncope, Denies irregular heart rhythm and Denies dyspnea Resp Denies chest congestion, Denies cough and Denies dyspnea GI Denies abdominal pain, Denies change in stool character, Denies nausea and Denies vomiting Musc Denies deformity and Denies joint swelling Neuro Denies syncope and Denies headache(s) Physical exam (Primary Care) Vital Signs: Last Vital Signs Pulse 100 05/23/23 14:15 BP 124/82 05/23/23 14:15 Pulse Ox 99 05/23/23 14:15 Oxygen Delivery Method Room Air 05/23/23 14:15 BMI result Body Mass Index 22.6 Tobacco/Smoking Status: Tobacco use Status Tobacco use date assessed 02/17/23 05/23/23 14:21 Patient Tobacco Use Status Current someday Tobacco 05/23/23 14:21 Tobacco use type Cigarette 05/23/23 14:21 e-Cigarette/Vaping Use Never Used 05/23/23 14:21 Thrive Assessment: Date of Thrive Assessment Date Thrive assessed 09/27/22 05/23/23 14:21 Const General: cooperative, comfortable, no acute distress and alert Neck Neck: Yes no lymphadenopathy Thyroid: Thyroid normal Resp Effort & Inspection: normal respiratory effort Auscultation: clear to auscultation bilaterally Percussion: percussion normal Cardio Jugular venous distension: no JVD Palpation: normal PMI Rate: regular rate Rhythm: regular rhythm Heart sounds: S1 normal heart sound present and S2 normal heart sound present GI Inspection: Yes normal to inspection Palpation (GI): No hepatosplenomegaly present Skin Other: 3 cm abscess on upper back Extrem General: Yes no clubbing, cyanosis or edema Assessment and Plan Assessment & Plan (1) Abscess of skin: Code(s): L02.91 - Cutaneous abscess, unspecified Plan: ref for I+D; rx sent Orders: Referrals General Surgery Referral L02.212 - Cutaneous abscess of back [any part, except buttock] Medications: New cephalexin 250 mg PO Q6H 20 caps 0RF Coding Level of Care Code Est Pt Level 3 (47270) Diagnoses Abscess of skin L02.91
== END 2023-05-23 14:31 | disposition home or self-care (01) ==
PROVIDERS: PCP Internal Medicine; Visit Provider Internal Medicine
DX: L02.91 Cutaneous abscess, unspecified (principal)
CPT/HCPCS: 99213

== ENCOUNTER 2023-05-30 10:16 | Outpatient (AMB) | payer OTHER, MEDICAID, SELFPAY ==
[2023-05-30 10:20] VITALS: BMI 22.6
--- NOTE | 2023-05-30 10:20 | MHC.OFFVIS ---
Intake Vital Signs 05/30/23 10:20 Height 5 ft 11 in Weight 162 lb 0.001 oz BMI 22.6 BP not taken reason Medical Reason Intake Visit Reasons: Cutaneous abscess of back Intake Note: This patient presents for an assessment for cutaneous abscess of the back. Patient c/o; reports abscess has burst, reports completing one round of antibiotics,took last pill this morning. 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 Patient sustained a neck injury approximately 3 weeks ago and has been wearing a neck brace which most likely irritated the area leading to the infection. Patient has been on antibiotics for several days time with minimal relief. Patient had spontaneous drainage of this yesterday and now presents here for further evaluation. Chart was reviewed patient evaluated [facility] Medical History Shoulder pain History of congestive heart failure Atrial flutter Cardiomyopathy PAF (paroxysmal atrial fibrillation) Hypertension Severe chronic obstructive pulmonary disease Chronic pain disorder Surgical History History of left shoulder replacement Family History Father Respiratory distress Mother Myocardial infarction CAD (coronary artery disease) Sister Gastric cancer Social History Housing: Apartment Alcohol intake: current Alcohol intake frequency: a few times a week Patient Tobacco Use Status: Current someday Tobacco user Tobacco use type: Cigarette Cigarettes Per Day: 3 e-Cigarette/Vaping Use: Never Used Second Hand Smoke Exposure: No service: No Current occupational status: disabled Current occupational exposures/hazards: No Cognitive needs: No Hearing needs: No Vision needs: No Physical Exam Vital Signs: BMI result Body Mass Index 22.6 Neck Other: Spontaneously draining approximately 4 x 3 cm infected sebaceous cyst. This was further drained of sebum and purulence and dressing applied. Well tolerated. Incidental finding of approximately 5 x 4 cm right lateral flank lipoma. Assessment & Plan Assessment & Plan (1) Abscess of back: Code(s): L02.212 - Cutaneous abscess of back [any part, except buttock] Plan Current plan is for the patient have office based dressing and packing changes, Script for antibiotics. Patient will see me proximal weeks time. All questions were answered. Medications: New cephalexin 500 mg PO TID 30 caps 0RF Coding Level of Care Code New Pt Level 4 (59108) Diagnoses Abscess of back L02.212
== END 2023-05-30 10:47 | disposition home or self-care (01) ==
PROVIDERS: PCP Internal Medicine; Visit Provider Surgery
DX: L02.212 Cutaneous abscess of back [any part, except buttock and flank] (principal)
CPT/HCPCS: 99204; 99214

== ENCOUNTER → 2023-05-30 10:16 | Outpatient (BNVA) | payer OTHER, MEDICAID, SELFPAY | PROVIDERS: PCP Internal Medicine; Visit Provider Surgery | DX: L02.11 Cutaneous abscess of neck (principal) | CPT/HCPCS: 99202 ==

== ENCOUNTER → 2023-05-31 13:01 | Outpatient (BNVA) | payer OTHER, MEDICAID, SELFPAY | PROVIDERS: PCP Internal Medicine; Visit Provider Surgery | DX: Z48.00 Encounter for change or removal of nonsurgical wound dressing (principal) | CPT/HCPCS: 99211 ==

== ENCOUNTER → 2023-06-01 12:56 | Outpatient (BNVA) | payer OTHER, MEDICAID, SELFPAY | PROVIDERS: PCP Internal Medicine; Visit Provider Surgery | DX: L02.212 Cutaneous abscess of back [any part, except buttock and flank] (principal) ==

== ENCOUNTER → 2023-06-05 12:46 | Outpatient (BNVA) | payer OTHER, MEDICAID, SELFPAY | PROVIDERS: PCP Internal Medicine; Visit Provider Surgery | DX: Z48.00 Encounter for change or removal of nonsurgical wound dressing (principal) | CPT/HCPCS: 99212 ==

== ENCOUNTER 2023-06-13 11:07 | Outpatient (AMB) | payer OTHER, MEDICAID, SELFPAY ==
[2023-06-13 11:08] VITALS: BP 100/60; PULSE 85; O2SAT 98; BMI 22.2
--- NOTE | 2023-06-13 11:08 | A.OFFPC_ITS ---
Vital Signs 06/13/23 11:08 Height 5 ft 11 in Weight 159 lb BMI 22.2 BP 100/60 Blood Pressure Location Lt brachial Position Sitting Pulse 85 Pulse Source Pulse Oximeter Pulse Oximetry (%) 98 Oxygen Delivery Method Room Air Intake Visit Reasons: 3 week f/u Program Coordinator For Residence Life Required: No Feeder Operator Automatic: Not Required per policy Accompanied by: Self / Same As Patient Allergies No Known Allergies Allergy (Verified 06/13/23 11:08) Medication List - Last Reconciled 06/13/23 by Vahid Farris MD albuterol sulfate 90 mcg/actuation 2 puffs PO Q4-6H PRN amoxicillin-pot clavulanate 875-125 mg 1 tab PO BID Anoro Ellipta 62.5-25 mcg/actuation (umeclidinium-vilanterol) 1 ea PO DAILY 30 days NS cephalexin 250 mg PO Q6H cephalexin 500 mg PO TID clonazepam 0.5 mg PO TID clotrimazole-betamethasone 1-0.05 % 1 appl topical BID 2 weeks flecainide 150 mg PO Q12H 90 days lisinopril 5 mg PO DAILY loratadine 10 mg PO DAILY PRN metoprolol tartrate 100 mg PO BID 90 days omeprazole 20 mg PO DAILY oxycodone 5 mg PO Q6H PRN 28 days oxycodone 5 mg PO Q6H PRN 28 days rivaroxaban (Xarelto) 20 mg PO QPM Tobacco use date assessed: 02/17/23 Fall risk assessment: No Falls in past year Last assessed Fall Risk: 06/13/23 Dental Screening Dental Screen Date: 06/13/23 Did you have a dental visit in the last 12 months?: Yes Did you have a dental problem in the last 6 months where you did not have access to dental care?: No Was dental information given to patient?: Patient has dentist HPI 3 week f/u HPI Details f/u pain management; stable on rx; seeing plastic surgery for facial fractured; may require surgery PFSH Medical History Shoulder pain History of congestive heart failure Atrial flutter Cardiomyopathy PAF (paroxysmal atrial fibrillation) Hypertension Severe chronic obstructive pulmonary disease Chronic pain disorder Surgical History History of left shoulder replacement Family History Father Respiratory distress Mother Myocardial infarction CAD (coronary artery disease) Sister Gastric cancer Social History Housing: Apartment Alcohol intake: current Alcohol intake frequency: a few times a week Patient Tobacco Use Status: Current someday Tobacco user Tobacco use type: Cigarette Cigarettes Per Day: 3 e-Cigarette/Vaping Use: Never Used Second Hand Smoke Exposure: No service: No Current occupational status: disabled Current occupational exposures/hazards: No Cognitive needs: No Hearing needs: No Vision needs: No Questionnaire Thrive Questionnaire Date Thrive assessed: 09/27/22 SHIRLEY-7 AMB Questionnaire SHIRLEY-7 Date SHIRLEY - 7 assessed: 09/27/22 Source: Developed by Drs. Jonathon Tidwell, Leanne Carney, Ab Lagunas and colleagues, with an educational srinivasa from [employer]. Review of Systems Const Denies chills, Denies headache(s) and Denies weight loss ENT Denies headache(s) Card Denies chest pain, Denies syncope, Denies irregular heart rhythm and Denies dyspnea Resp Denies chest congestion, Denies cough and Denies dyspnea GI Denies abdominal pain, Denies change in stool character, Denies nausea and Denies vomiting Musc Denies deformity and Denies joint swelling Neuro Denies syncope and Denies headache(s) Physical exam (Primary Care) Vital Signs: Last Vital Signs Pulse 85 06/13/23 11:08 BP 100/60 06/13/23 11:08 Pulse Ox 98 06/13/23 11:08 Oxygen Delivery Method Room Air 06/13/23 11:08 BMI result Body Mass Index 22.2 Tobacco/Smoking Status: Tobacco use Status Tobacco use date assessed 02/17/23 06/13/23 11:09 Patient Tobacco Use Status Current someday Tobacco 06/13/23 11:09 Tobacco use type Cigarette 06/13/23 11:09 e-Cigarette/Vaping Use Never Used 06/13/23 11:09 Thrive Assessment: Date of Thrive Assessment Date Thrive assessed 09/27/22 06/13/23 11:09 Const General: cooperative, comfortable, no acute distress and alert Neck Neck: Yes no lymphadenopathy Thyroid: Thyroid normal Resp Effort & Inspection: normal respiratory effort Auscultation: clear to auscultation bilaterally Percussion: percussion normal Cardio Jugular venous distension: no JVD Palpation: normal PMI Rate: regular rate Rhythm: regular rhythm Heart sounds: S1 normal heart sound present and S2 normal heart sound present GI Inspection: Yes normal to inspection Palpation (GI): No hepatosplenomegaly present Skin General skin exam: no rashes or lesions noted Extrem General: Yes no clubbing, cyanosis or edema Assessment and Plan Assessment & Plan (1) Chronic pain disorder: Code(s): G89.4 - Chronic pain syndrome Plan: stable; same rx Medications: Refilled oxycodone 5 mg PO Q6H PRN 112 tabs 0RF pain 28 days Coding Level of Care Code Est Pt Level 3 (96150) Diagnoses Chronic pain disorder G89.4
== END 2023-06-13 11:58 | disposition home or self-care (01) ==
LOC: HO.HMGH 11:07
PROVIDERS: PCP Internal Medicine; Visit Provider Internal Medicine
DX: G89.4 Chronic pain syndrome (principal)
CPT/HCPCS: 99213

== ENCOUNTER → 2023-06-14 09:57 | Outpatient (BNVA) | payer OTHER, MEDICAID, SELFPAY | PROVIDERS: PCP Internal Medicine; Visit Provider Surgery | DX: Z48.00 Encounter for change or removal of nonsurgical wound dressing (principal) | CPT/HCPCS: 99211 ==

== ENCOUNTER 2023-06-20 13:43 | Outpatient (AMB) | payer OTHER, MEDICAID, SELFPAY ==
[2023-06-20 13:50] VITALS: BP 120/73; PULSE 81; BMI 22.9
--- NOTE | 2023-06-20 13:50 | A.OFFVIS_ITS ---
Intake Vital Signs 06/20/23 13:50 Height 5 ft 11 in Weight 164 lb BMI 22.9 BP 120/73 Blood Pressure Location Rt brachial Position Sitting Pulse 81 Intake Visit Reasons: infected sebaceous cyst, left upper neck abscess Intake Note: Patient here to f/u abscess on Lt upper post neck. Reports healing well aftr Cephalexin course. Patient c/o: itch at scar line. 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 Patient has been undergoing wound. Changes to the office with Juan C. He has no new wound issues or complaints [facility] Medical History Shoulder pain History of congestive heart failure Atrial flutter Cardiomyopathy PAF (paroxysmal atrial fibrillation) Hypertension Severe chronic obstructive pulmonary disease Chronic pain disorder Surgical History History of left shoulder replacement Family History Father Respiratory distress Mother Myocardial infarction CAD (coronary artery disease) Sister Gastric cancer Social History Housing: Apartment Alcohol intake: current Alcohol intake frequency: a few times a week Patient Tobacco Use Status: Current someday Tobacco user Tobacco use type: Cigarette Cigarettes Per Day: 3 e-Cigarette/Vaping Use: Never Used Second Hand Smoke Exposure: No service: No Current occupational status: disabled Current occupational exposures/hazards: No Cognitive needs: No Hearing needs: No Vision needs: No Physical Exam Vital Signs: Last Vital Signs Pulse 81 06/20/23 13:50 BP 120/73 06/20/23 13:50 BMI result Body Mass Index 22.9 Neck Other: Patient has had marked healing of the area. Is about the size of a dime now with healthy granulating tissue. No evidence of any infection or abscess. Assessment & Plan Assessment & Plan (1) Abscess of back: Code(s): L02.212 - Cutaneous abscess of back [any part, except buttock] Plan Patient is to continue placing a large bandage over the area to protect the resolving wound from the neck brace. All questions answered. He will follow-up p.r.n.. Coding Level of Care Code Est Pt Level 4 (50964) Diagnoses Abscess of back L02.212
== END 2023-06-20 13:53 | disposition home or self-care (01) ==
PROVIDERS: PCP Internal Medicine; Visit Provider Surgery
DX: L02.212 Cutaneous abscess of back [any part, except buttock and flank] (principal)
CPT/HCPCS: 99214

== ENCOUNTER → 2023-06-20 13:43 | Outpatient (BNVA) | payer OTHER, MEDICAID, SELFPAY | PROVIDERS: PCP Internal Medicine; Visit Provider Surgery | DX: Z09 Encounter for follow-up examination after completed treatment for conditions other than malignant neoplasm (principal); Z87.2 Personal history of diseases of the skin and subcutaneous tissue | CPT/HCPCS: 99212 ==

== ENCOUNTER 2023-07-27 10:19 | Outpatient (AMB) | payer OTHER, MEDICAID, SELFPAY ==
--- NOTE | 2023-07-27 10:21 | A.OFFVIS_ITS ---
Intake Intake Visit Reasons: Gross hematuria- Follow up Intake Note: Patient presents today for a CYSTOSCOPY Procedure due to Gross Hematuria: Meds: None Allergies to Antibiotic: No Known Allergies Blood Thinner: None Urinalysis test clear for Cysto? 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 07/27/23--Odell was last seen on 03/15/20 for gross hematuria at that time we discussed scheduling outpatient cystoscopy. The patient canceled the outpatient procedure as he had a fall which required hospitalization and he sustained a neck injury 3 cervical fractures. He states that he was treated at a trauma center received blood transfusions and has been wearing a neck brace, which was recently removed. Office cystoscopy today: >3 cm bladder tumor right lateral wall Review of chart: 03/15/2023? He presents today for an evaluation of hematuria.?PMH -Cardiomiopathy, Htn, atrial flutter, he is on blood thinners, He has been taking blood thinner for about 7-8 years. He mentions having hematuria and reports nocturia x 7. He was seen in ED on 12/17/2022 for hematuria. He was treated with antibiotics during that time. Patient was advised to follow-up with urology during that time.? 03/15/23--Examination: prostate is tender to palpation and firm. CT abdomen/pelvis results from 12/17/2022 revealed no renal calculi are seen. Incidental note made of a 4 mm groundglass nodule in the right lower lobe and minimal peribronchial thickening. Renal US results from 11/25/2022 revealed no specific source of hematuria is identified. No renal mass, stones or hydronephrosis. Urine culture results from 12/17/2022 which came back < 10,000 cfu/ml. 07/27/23--Plan:Cysto TURBT, preop labs, CB C, Chem 7 PFSH Medical History Shoulder pain History of congestive heart failure Atrial flutter Cardiomyopathy PAF (paroxysmal atrial fibrillation) Hypertension Severe chronic obstructive pulmonary disease Chronic pain disorder Surgical History History of left shoulder replacement Family History Father Respiratory distress Mother Myocardial infarction CAD (coronary artery disease) Sister Gastric cancer Social History Housing: Apartment Alcohol intake: current Alcohol intake frequency: a few times a week Patient Tobacco Use Status: Current someday Tobacco user Tobacco use type: Cigarette Cigarettes Per Day: 3 e-Cigarette/Vaping Use: Never Used Second Hand Smoke Exposure: No service: No Current occupational status: disabled Current occupational exposures/hazards: No Cognitive needs: No Hearing needs: No Vision needs: No Review of Systems Const All systems reviewed & are unremarkable except as noted in HPI and below Reports no additional complaints Eyes Reports no additional complaints ENT Reports no additional complaints Card Denies dyspnea Resp Denies cough and Denies dyspnea GI Reports no additional complaints Musc Reports no additional complaints Skin/Breast Denies rash and Denies unusual bruising Neuro Reports no additional complaints Psych Reports no additional complaints Endo Reports no additional complaints Davy/Lymph Reports no additional complaints Aller/Immun Reports no additional complaints Office Procedures Cystoscopy Consent Discussed risk and benefit or proposed procedure with the patient. Information consent for procedure given to the patient. Discussed technical aspects, risks, benefits and alternatives in full. Addressed all of the patient's questions and concerns regarding the procedure. The patient demonstrated knowledge and understanding. They wish to proceed with this procedure. Preparation The patient was prepped in the usual manner. A piano accompanist was present and in the room. Genitalia was prepped with betadine solution in a sterile manner. Lidocaine Jelly 2% was placed into the urethra and 16Fr flexible Olympus cystoscope was inserted into the meatus after adequate lubrication. Procedure Time out per protocol performed. Bladder Inspection Bladder Inspection: The bladder was inspected in its entirety with utilization retroflexion displaying: Tumor(s): Yes- -->3 cm bladder tumor right lateral wall Trabeculation: mild Mucosal Erthema: N/A Orifices: normal shape and position Urethra: normal Cystoscopy findings: >3 cm bladder tumor right lateral wall, prostatic urethra non obstructive, bulbous urethra WNL. [id number] DISPOSABLE SCOPE URO-G FLEXIBLE SCOPE Procedure code (CPT) selection complete Office Meds lidocaine HCl 2 % mucosal jelly in applicator Performing Provider: Greyson Hall MD Performing Location: [facility] Administered by: Carina Basurto RN on 07/27/23 11:31 Dose Route Admin Location Dispensed Lot Number Expiration Date NDC Costume Maker 10 mL intra-urethral 20 mL naproxen 500 mg tablet Performing Provider: Greyson Hall MD Performing Location: [facility] Administered by: Carina Basurto RN on 07/27/23 11:31 Dose Route Admin Location Dispensed Lot Number Expiration Date NDC Costume Maker 500 mg PO 1 tab ciprofloxacin HCl 500 mg tablet Performing Provider: Greyson Hall MD Performing Location: [facility] Administered by: Carina Basurto RN on 07/27/23 11:31 Dose Route Admin Location Dispensed Lot Number Expiration Date NDC Costume Maker 500 mg PO 1 tab Results AMB Urinalysis, Automated UA Leukoctes 70 Emma/uL Last Edit by ALEKSANDR Long on 07/27/23 10:33 1+ Annelise Adams 07/27/23 10:33 UA Nitrite Negative Last Edit by ALEKSANDR Long on 07/27/23 10:33 UA Urobilinogen 0.2 mg/dL Last Edit by ALEKSANDR Long on 07/27/23 10:3 3 UA Protein 30 mg/dL Last Edit by ALEKSANDR Long on 07/27/23 10:33 1+ Annelise Adams 07/27/23 10:33 UA pH 6.0 Last Edit by ALEKSANDR Long on 07/27/23 10:33 UA Blood 200 Angel/uL Last Edit by ALEKSANDR Long on 07/27/23 10:33 3+ Annelise Adams 07/27/23 10:33 UA Specific [place] 1.020 Last Edit by ALEKSANDR Long on 07/27/23 10: 33 UA Ketone Negative Last Edit by ALEKSANDR Long on 07/27/23 10:33 UA Bilirubin 1 mg/dL Last Edit by ALEKSANDR Long on 07/27/23 10:33 1+ Annelise Adams 07/27/23 10:33 UA Glucose 0 mg/dL Last Edit by ALEKSANDR Long on 07/27/23 10:33 Results Reviewed Results Reviewed: Laboratory Last Values Urine pH (Auto) 6.0 07/27/23 10:22 Specific [place] (Auto) 1.020 07/27/23 10:22 Urine Protein (Auto) 30 mg/dL 07/27/23 10:22 Glucose (UA)(Auto) 0 mg/dL 07/27/23 10:22 Urine Ketones (Auto) Negative 07/27/23 10:22 Urine Blood (Auto) 200 Angel/uL 07/27/23 10:22 Urine Nitrite (Auto) Negative 07/27/23 10:22 Urine Bilirubin (Auto) 1 mg/dL 07/27/23 10:22 Urine Urobilinogen (Auto) 0.2 mg/dL 07/27/23 10:22 Leukocyte Esterase (Auto) 70 Emma/uL 07/27/23 10:22 Assessment & Plan Assessment & Plan (1) Gross hematuria: Code(s): R31.0 - Gross hematuria (2) Lesion of bladder: Code(s): N32.9 - Bladder disorder, unspecified (3) Pre-op evaluation: Code(s): Z01.818 - Encounter for other preprocedural examination Plan cystoscopy transurethral resection bladder tumor, random bladder biopsies preop labs, cbc, chem 7. Orders: Orders Urine Cytology 07/27/23 R31.0 - Gross hematuria AMB Cystoscopy 07/27/23 R31.0 - Gross hematuria CT urogram 07/27/23 N32.9 - Bladder disorder, unspecified, R31.0 - Gross hematuria Basic Metabolic Panel 07/31/23 Z01.818 - Encounter for other preprocedural examination AMB Urinalysis Automated 07/27/23 Z13.9 - Encounter for screening, unspecified Urine Culture 07/27/23 N39.0 - Urinary tract infection, site not specified Complete Blood Count Auto Diff 07/31/23 R31.0 - Gross hematuria, Z01.818 - Encounter for other preprocedural examination Patient Instructions: The patient had an opportunity to ask questions regarding treatment plan. All questions were answered. Imaging, Laboratory studies and physical exam results were discussed and reviewed in detail. No major barriers to understanding were identified. The patient expressed understanding and agreement with the above treatment plan. The patient is aware they should contact our office by phone for worsening of their current condition or the appearance of new symptoms. Compliance is encouraged with any medications and followup testing that is ordered. It is a privilege to be allowed the opportunity to participate in the urologic care of your patient. If you have any questions or concerns regarding treatment for the above conditions please do not hesitate to contact me. The office telephone contact is [phone]. This note is constructed in part using voice recognition software. While every effort has been made to ensure accuracy ribbon tier errors may have been included. Yours sincerely, Greyson Hall MD Coding Level of Care Code Est Pt Level 4 (75535) Diagnoses Gross hematuria R31.0 Lesion of bladder N32.9 Pre-op evaluation Z01.818 CPT Codes Cystoscopy - CPT: 16438-Mervlbpcms ([id number])
== END 2023-07-27 12:13 | disposition home or self-care (01) ==
PROVIDERS: PCP Internal Medicine; Visit Provider Urology
DX: R31.0 Gross hematuria (principal); N32.9 Bladder disorder, unspecified; Z01.818 Encounter for other preprocedural examination
CPT/HCPCS: 52000; 99214

== ENCOUNTER 2023-07-27 10:19 | Outpatient (REF) | payer OTHER, MEDICAID, SELFPAY ==
[2023-07-27 17:01] LABS: Urine Cytology See Pathology rpt
== END 2023-07-27 10:20 | disposition home or self-care (01) ==
LOC: HO.LAB 10:19
PROVIDERS: PCP Internal Medicine; Visit Provider Urology
DX: Z01.818 Encounter for other preprocedural examination (principal); R31.0 Gross hematuria; N39.0 Urinary tract infection, site not specified; N32.9 Bladder disorder, unspecified
CPT/HCPCS: 52000; 81003; 87086; 88112; 99212

== ENCOUNTER 2023-07-31 10:13 | Outpatient (REF) | payer OTHER, MEDICAID, SELFPAY ==
[2023-07-31 10:43] LABS: MANUAL DIFF FLAG NO
[2023-07-31 11:05] LABS: Basophils Percent Auto 0.5 % (0-2); Eosinophils Percent Auto 0.7 % (0-4); Hematocrit 36.3 % (42.0-52.0); Hemoglobin 12.1 g/dl (14.0-18.0); Imm Gran Abs Auto 0.02 X10*3/uL (0.00-0.03); Imm Gran Pct Auto 0.3 % (0.0-0.4); Lymphocytes Absolute Auto 1.3 X10*3/uL (1.2-4.9); Lymphocytes Percent Auto 22.3 % (20-40); Mean Corpuscular HGB Conc 33.3 g/dl (31.0-36.0); Mean Corpuscular Hemoglobin 30.9 pg (27.0-33.0); Mean Corpuscular Volume 92.8 fL (80.0-98.0); Mean Platelet Volume 12.1 fL (9.4-12.4); Monocytes Absolute Auto 0.4 X10*3/uL (0.1-1.2); Monocytes Percent Auto 6.4 % (2-11); Neutrophils Absolute Auto 4.1 x10*3/uL (2.0-8.3); Neutrophils Percent Auto 69.8 % (45-73); Platelet Count 188 X10*3/uL (160-400); Red Blood Count 3.91 X10*6/uL (4.60-5.80); Red Cell Distribution Width 13.8 % (11.0-16.0); White Blood Count 5.9 X10*3/uL (4.8-10.8)
[2023-07-31 11:31] LABS: Anion Gap 14 (12-20); Blood Urea Nitrogen 11 mg/dL (9-16); Calcium 9.1 mg/dL (8.4-10.2); Carbon Dioxide 24 mmol/L (22-29); Chloride 103 mmol/L (96-108); Estimated Glomerular Filt Rate > 60; Glucose Random 87 mg/dL (60-115); Potassium 3.9 mmol/L (3.3-5.1); Sodium 137 mmol/L (135-145)
== END 2023-07-31 10:14 | disposition home or self-care (01) ==
LOC: HO.LAB 10:13
PROVIDERS: PCP Internal Medicine; Visit Provider Urology
DX: Z01.818 Encounter for other preprocedural examination (principal); R31.0 Gross hematuria
CPT/HCPCS: 36415; 80048; 85025